=== PATIENT | male | born 1945 | race Caucasian/White ===

== ENCOUNTER → 2016-08-04 | Outpatient (CLI) | payer MEDICARE, OTHER ==
--- NOTE | 2016-08-04 11:37 | EST ---
DATE OF SERVICE: 08/04/2016 AGE: 71Y SEX: M HT: 69" WT: 155 lbs. Protocol Javy: X Other: Stress Stage: 4 Dur. of Exercise: 10:00 *Heart Rate Blood Pressure *Rest: 78 Rest: 140/96 * *Max. Achieved: 150 Maximum BP: 209/89 85% PMHR: 128 100% PMHR: 150 *METS: 11.7 INDICATIONS: Chest pain. MEDICATIONS: - Baseline EKG revealed normal sinus rhythm without significant ST-T changes. Patient walked on standard Javy protocol for total duration of 10 minutes, achieved a maximum heart rate of 150 beats, which is 100% of predicted maximum. He developed fatigue, shortness of breath, but did not have angina or arrhythmia. Peak blood pressure was 209/89 and resting blood pressure was 140/96. By EKG criteria, this is a negative stress test with excellent exercise capacity. Patient was slightly hypertensive to begin with. There is no evidence of any stress-induced ischemia on the basis of this stress test.
== END | disposition home or self-care (01) ==
LOC: RADNMMAIN 10:32
PROVIDERS: ATTEND Internal Medicine Geriatric Medicine
DX: R07.9 Chest pain, unspecified (principal)
CPT/HCPCS: 93017

== ENCOUNTER 2016-10-13 08:25 | Day surgery (SDC) | payer MEDICARE, OTHER ==
[2016-10-11 09:31] VITALS: BMI 22.8
[~2016-10-13 08:25] MED LIST: CLINDAMYCIN 900 MG in DEXTROSE 5% IN WATER 50 ML IVPB ONE; DEXAMETHASONE SOD PHOSPHATE 10 MG/ML 1 ML VIAL IV ONE; LEVOFLOXACIN 500MG-D5W PMX 500 MG in DEXTROSE/WATER 1 100ML.BAG IVPB ONE; LIDOCAINE 1% 20 ML VIAL (10MG/ML) FOR IV START INTRADERMA PRN; ONDANSETRON 4 MG/2 ML VIAL IVP ONE
[2016-10-13] MEDS: LACTATED RINGERS 1,000 ML IV SCH ×2 (08:42→08:51)
[2016-10-13] MEDS ORDERED: HEPARIN SODIUM,PORCINE 5,000 UNIT/ML 1 ML VIAL SQ ONE ×2 (09:01→09:06)
[2016-10-13] MEDS ORDERED: ePHEDrine 50 MG/ML 1 ML AMP ONE (09:35)
[2016-10-13] MEDS ORDERED: PHENYLEPHRINE-0.9% NACL SYG 1 MG/10 ML SYRINGE ONE (09:35)
[2016-10-13] MEDS ORDERED: NEOSTIGMINE 1 MG/ML 10 ML VIAL ONE (09:35)
[2016-10-13] MEDS ORDERED: GLYCOPYRROLATE 0.2 MG/ML 2 ML VIAL ONE (09:35)
[2016-10-13] MEDS ORDERED: MIDAZOLAM 2 MG/2 ML VIAL ONE (09:35)
[2016-10-13] MEDS ORDERED: LABETALOL 5 MG/ML VIAL MDV ONE (09:35)
[2016-10-13] MEDS ORDERED: PROPOFOL 10 MG/ML 20 ML VIAL IV ONE (09:35)
[2016-10-13] MEDS ORDERED: ONDANSETRON 4 MG/2 ML VIAL ONE (09:35)
[2016-10-13] MEDS ORDERED: fentaNYL (PF) 50 MCG/ML 2 ML AMP ONE (09:35)
[2016-10-13] MEDS ORDERED: HYDROmorphone (PF) 1 MG/ML ONE (09:35)
[2016-10-13] MEDS ORDERED: ROCURONIUM BROMIDE 10 MG/ML 10 ML VIAL IV ONE (09:35)
[2016-10-13] MEDS ORDERED: SUCCINYLCHOLINE CHLORIDE 100 MG/5 ML SYR IV ONE (09:35)
[2016-10-13] MEDS ORDERED: LACTATED RINGERS 1,000 ML IV ONE ×2 (11:12→15:03)
[2016-10-13] MEDS: HYDROmorphone 1 MG/ML 1 ML SYRINGE IVP PRN ×3 (14:05→14:25)
--- NOTE | 2016-10-13 15:08 | P.OP ---
Date of Procedure: 10/13/16 Preoperative Diagnosis: Bilateral inguinal hernia Postoperative Diagnosis: bilateral indirect inguinal hernia Procedure(s) Performed: Robot-assisted laparoscopic inguinal hernia repair Implants: Anesthesia: EVELINEA Surgeon: Ottoniel Pan Estimated Blood Loss (ml): 15 Pathology: none sent Condition: stable Disposition: PACU Indications for Procedure: Operative Findings: Description of Procedure: Informed consent was obtained patient and then The patient was brought to the operating room and placed in supine position. General anesthesia with endotracheal intubation was performed as per anesthesia team. A wong catheter was inserted under sterile aseptic precautions. Chlorhexidine was used to prep the skin followed by application of sterile drapes . He was placed in the lithotomy position. A timeout was performed to verify correct patient, correct procedure and correct side. Patient was confirmed to receive perioperative IV antibiotics, subcutaneous heparin 5000 units and bilateral SCDs were placed. The left upper quadrant point was identified and a stab incision was made. Veress needle was introduced and placement was confirmed with the help of the drop test. The abdomen was then insufflated to 15 mmHg. Once that was done 5 mm port was introduced into the left upper quadrant using the Optiview technique after which a 12 mm port was placed in the supraumbilical position and a 8 mm port in the right lower quadrant and then after that the left-sided 5 mm port was replaced with a robot 8 mm port under direct vision. The robot was then docked with the central camera port and the 2 side working ports. The 30 degree of scope was introduced and the abdomen through the 12 mm port site. Cardiere grasper for the left hand and scissor in the right hand was introduced in the abdominal cavity after which the media umbilical fold on the right side were grasped and incision was made within it and was actually incised further and carried over the midline towards left side creating an open flap on the left side. The peritoneum was also opened further on the right side all the way down to the paracolic gutter. Once this was done the peritoneum was meticulously dissected off the anterior abdominal wall especially in the midline with the previous incision for the open prostatectomy had been this was taken down first, followed by lateral dissection. What was noted that the lateral dissection on both side the peritoneum and the transversalis was incised adhesed and therefore the patient was not forming well. Therefore approach and from lateral to medial side were able to find a plane between the transversalis and the peritoneum and that was opened up on both sides thus creating peritoneal folds on both sides at the same time. Once that was done attention was turned towards the midline where further dissection was necessary. Sponges were also introduced Bipolar forceps was in the left hand and scissor in the right with diffuse dissection was done so as to take down all the scar tissue and adhesions in the midline exposing both pubic tubercles and Dru's ligaments. Going laterally first on the left side the superior surface of the hernia sac was identified and then after grabbing and retracting it superiorly while the title assistant through the title assistant port grabbed and pulled the peritoneal fold inferiorly dissection was made around it for skeletonizing it off of the vas which was now visible. Once the sac was completely reduced the vas and the duct were all clearly identified and appropriate critical view was obtained similar dissection was done on the opposite side. 10 x 15 Pro mold dresser measures were then taken and placed covering all the orifices. The peritoneum was then sutured to the anterior abdominal wall lower than from where it was incised so that there will was no pole on the mesh or folding. Multiple holes was seen all of which were closed meticulously. Once this was done all the sponges and needles were removed and accounted for. There were no holes. His no folding of the mesh. Patient ordered procedure well there were complications he was extubated and taken to recovery room after removal of the Wong catheter. Plan - Discharge Summary New Discharge Prescriptions: New HYDROcodone/APAP 5-325MG [[place] 5-325] 1 tab PO Q6HR PRN #20 tab PRN Reason: Pain Ibuprofen [Motrin] 800 mg PO Q8H PRN #20 tab PRN Reason: Pain No Action clonazePAM [KlonoPIN] 0.5 mg PO HS Famotidine (Unknown Dose) 1 tab PO DAILY PRN PRN Reason: See Comments Acetaminophen Tab [Tylenol Tab] 1,000 mg PO BID Discharge Medication List Acetaminophen Tab [Tylenol Tab] 1,000 mg PO BID 10/11/16 [History] Famotidine (Unknown Dose) 1 tab PO DAILY PRN 10/11/16 [History] clonazePAM [KlonoPIN] 0.5 mg PO HS 10/11/16 [History] HYDROcodone/APAP 5-325MG [[place] 5-325] 1 tab PO Q6HR PRN #20 tab 07/13/17 [Rx] Ibuprofen [Motrin] 800 mg PO Q8H PRN #20 tab 10/13/16 [Rx] Follow up Appointment(s)/Referral(s): Ottoniel Pan MD [STAFF PHYSICIAN] - 1 Week Activity/Diet/Wound Care/Special Instructions: Regular diet AMbulate as tolerated Use incentive spirometer as directed No driving on pain medications or when having pain May shower in 24 hours No heavy liftin more than 20 lbs for 6 weeks Discharge Disposition: HOME SELF-CARE
[2016-10-13] MEDS ORDERED: HYDROcodone/APAP 5-325MG 1 EACH TAB PO ONE (15:50)
[2016-10-13 16:03] VITALS: RESP 18
[2016-10-13 16:19] VITALS: TEMP 96.9
[2016-10-13 17:40] VITALS: PULSE 100
[2016-10-13 18:28] VITALS: BP 136/72
== END 2016-10-13 18:36 | disposition home or self-care (01) ==
LOC: OR 08:25
PROVIDERS: ATTEND Surgery
DX: K40.20 Bilateral inguinal hernia, without obstruction or gangrene, not specified as recurrent (principal); Z85.46 Personal history of malignant neoplasm of prostate; I49.3 Ventricular premature depolarization; K21.9 Gastro-esophageal reflux disease without esophagitis; R56.9 Unspecified convulsions; Z79.899 Other long term (current) drug therapy; Z88.0 Allergy status to penicillin; Z88.2 Allergy status to sulfonamides
CPT/HCPCS: 49650; C1781; J2250; J1644; J1100; J2710; J2405; J1956; J3010; J1170; J2370; J0330; J2704

== ENCOUNTER 2019-09-26 13:29 | Emergency (ER) | payer MEDICARE, OTHER ==
[2019-09-26 13:40] VITALS: RESP 18
--- NOTE | 2019-09-26 14:26 | ED ---
Fall HPI - General Chief Complaint: Fall Stated Complaint: head injury, fell off ladder Time Seen by Provider: 09/26/19 13:41 Source: patient Mode of arrival: wheelchair - History of Present Illness Initial Comments: Patient is a 74-year-old male presenting to the emergency department after falling off the second step of a small ladder. Patient states he fell forward over the small stepstool landing mostly on the right side of his head. Patient states he did land on cement. He did not lose consciousness, he is not on blood thinners. He states feels "a little disoriented" but denies blurry vision, denies trouble walking. He denies any nausea or vomiting. He states he has a very mild headache. He denies any other injuries from this fall. He has no other complaints at this time. Upon arrival to the ER, his vital signs are stable. - Related Data Home Medications Medication Instructions Recorded Confirmed Acetaminophen Tab [Tylenol Tab] 1,000 mg PO BID 10/11/16 10/13/16 Famotidine (Unknown Dose) 1 tab PO Q7D PRN 10/11/16 10/13/16 clonazePAM [KlonoPIN] 0.5 mg PO HS PRN 10/11/16 10/13/16 Metoprolol (Unknown Dose) 25 mg PO DAILY 03/09/17 Previous Rx's Medication Instructions Recorded Ibuprofen [Motrin] 800 mg PO Q8H PRN #20 tab 10/13/16 Allergies Allergy/AdvReac Type Severity Reaction Status Date / Time Penicillins Allergy Severe Anaphylaxis Verified 09/26/19 13:40 Sulfa (Sulfonamide Allergy Anaphylaxis Verified 09/26/19 13:40 Antibiotics) Review of Systems ROS Statement: Those systems with pertinent positive or pertinent negative responses have been documented in the HPI. ROS Other: All systems not noted in ROS Statement are negative. Past Medical History Past Medical History: Cancer, GERD/Reflux, Prostate Disorder, Syncope Additional Past Medical History / Comment(s): Hx prostate cancer History of Any Multi-Drug Resistant Organisms: None Reported Past Surgical History: Hernia Repair, Prostate Surgery, Tonsillectomy Past Anesthesia/Blood Transfusion Reactions: No Reported Reaction Additional Past Anesthesia/Blood Transfusion Reaction / Comment(s): Pt states after Prostate surgery it took him a year to get back to normal with his brain activity. States he had difficulty forming and putting together two sentences. Past Psychological History: Anxiety Smoking Status: Never smoker Past Alcohol Use History: Occasional Past Drug Use History: None Reported - Past Family History Father Family Medical History: Cancer Additional Family Medical History / Comment(s): Skin cancer General Exam - General Exam Comments Initial Comments: GENERAL: Well-appearing, well-nourished and in no acute distress. HEAD: Patient has a hematoma on the right side of his head just superior to the temporal area. This is tender to touch. Patient also has a very small hematoma just above his right eyebrow. EYES: Pupils equal round and reactive to light, extraocular movements intact, sclera anicteric, conjunctiva are normal. ENT: TMs normal, nares patent, oropharynx clear without exudates. Moist mucous membranes. NECK: Normal range of motion, supple without lymphadenopathy or JVD. LUNGS: Breath sounds clear to auscultation bilaterally and equal. No wheezes rales or rhonchi. HEART: Regular rate and rhythm without murmurs, rubs or gallops. ABDOMEN: Soft, nontender, normoactive bowel sounds. No guarding, no rebound. No masses appreciated. : Deferred EXTREMITIES: Normal range of motion, no pitting or edema. No clubbing or cyanosis. Strength is 5 out of 5 bilaterally upper and lower extremities. NEUROLOGICAL: Cranial nerves II through XII grossly intact. Normal speech, normal gait. PSYCH: Normal mood, normal affect. SKIN: Warm, Dry, normal turgor, no rashes or lesions noted. Limitations: no limitations Course Vital Signs 09/26/19 09/26/19 13:37 15:29 Temperature 98.2 F 97.9 F Pulse Rate 67 66 Respiratory 18 18 Rate Blood Pressure 130/85 137/83 O2 Sat by Pulse 97 98 Oximetry Medical Decision Making - Medical Decision Making Patient is a 74-year-old male presenting after a fall injury. There was no loss of consciousness, he is not on blood thinners. His exam is unremarkable except for a hematoma on the right side of his skull. No neuro deficits. CT of the brain was obtained and does show a soft tissue hematoma, no other acute findings. I discussed with patient that he most likely has a mild concussion. We discussed limiting physical activity. He is in agreement with this plan of care. He is stable for discharge. Return parameters were discussed with him and his and they both verbalized understanding. Case discussed with Dr. Pierre. Disposition Clinical Impression: Fall, Traumatic hematoma of head Disposition: HOME SELF-CARE Condition: Stable Instructions (If sedation given, give patient instructions): Concussion (ED) Additional Instructions: Please return to the Emergency Department if symptoms worsen or any other concerns. Limit physical activity for the next 2-3 days. Follow-up with PCP as needed. Is patient prescribed a controlled substance at d/c from ED?: No Referrals: John Peterson MD [Primary Care Provider] - 1-2 days
--- NOTE | 2019-09-26 14:37 | CT ---
EXAMINATION TYPE: CT brain wo con DATE OF EXAM: 09/26/2019 COMPARISON: None HISTORY: Fall injury and pain CT DLP: 1068.4 mGycm Automated exposure control for dose reduction was used. FINDINGS: There is no acute intracranial hemorrhage, mass effect, or midline shift identified. Mild generalized degenerative change. There is calcification along the interhemispheric fissure. Soft tissue hematoma adjacent to the right superior parietal bone. Calvarium intact.. Metallic densities underneath the e pidermis bilaterally may represent foreign body of indeterminate age. IMPRESSION: Soft tissue hematoma overlying the right parietal bone superiorly with no acute fracture or intracran ial hemorrhage. Metallic densities in the subcutaneous tissues anteriorly likely represent tiny areas of foreign body which are of indeterminate age. Mild degenerative change.
[2019-09-26 15:30] VITALS: BP 137/83; PULSE 66; TEMP 97.9
== END 2019-09-26 15:29 | disposition home or self-care (01) ==
LOC: EC 13:29
DX: S00.93XA Contusion of unspecified part of head, initial encounter (principal); F41.9 Anxiety disorder, unspecified; Z79.899 Other long term (current) drug therapy; Z88.0 Allergy status to penicillin; Z88.2 Allergy status to sulfonamides; Z85.46 Personal history of malignant neoplasm of prostate; W11.XXXA Fall on and from ladder, initial encounter
CPT/HCPCS: 70450; 99283

== ENCOUNTER → 2020-08-12 | Outpatient (CLI) | payer MEDICARE, OTHER ==
--- NOTE | 2020-08-12 15:04 | CT ---
EXAMINATION TYPE: CT abdomen pelvis wo con DATE OF EXAM: 08/12/2020 COMPARISON: None INDICATION: Severe abdominal/pelvic pain. DLP: 760 mGycm, Automated exposure control for dose reduction was used. CONTRAST: 0 mL of Isovue 300. Study performed without Oral Contrast TECHNIQUE: Axial images were obtained from above the diaphragm to the pubic rami in the axial plane a t 5 mm thick sections. Reconstructed images are reviewed on the computer in the coronal plane. FINDINGS: Limited CT sections are obtained the lung bases. The lung bases are clear. Minimal hiatal hernia be considered. CT ABDOMEN: Liver: Normal Spleen: Normal Pancreas: Normal Adrenal glands: The adrenal glands are normal. Gallbladder: Gallstones are present. Kidneys: 0.5 cm posterior lateral left mid kidney hyperdense areas within the cortex. Additional work up is recommended. No hydronephrosis is present. No cysts are present. No renal stones are evident . Aorta: Vascular calcification is within the aorta. Inferior vena cava: Normal. CT PELVIS: Multiple brachytherapy seeds are present causing beam hardening artifact and limitation. Loops of bowel within the abdomen and pelvis are normal. This study is without oral contrast limi ting bowel evaluation. Appendix: Normal as visualized. Urinary bladder: Decompressed limiting evaluation. Genitourinary structures: Brachytherapy seeds are within the prostate. Osseous structures: No suspicious lytic or sclerotic lesions. There is a punctate sclerotic area with in the lateral left sacral alar could be a small bone island. Metastatic lesion is not excluded but m ay be less likely. Tiny punctate sclerotic areas are within the femoral heads. IMPRESSIONS: 1. No suspicious changes to suggest metastatic prostate cancer. 2. Cholelithiasis. 3. Hyperdense left renal cortex punctate mass. Additional workup with ultrasound is recommended.
== END | disposition home or self-care (01) ==
LOC: RADCTMAIN 13:09
PROVIDERS: ATTEND Internal Medicine Geriatric Medicine
DX: K80.20 Calculus of gallbladder without cholecystitis without obstruction (principal)
CPT/HCPCS: 74176

== ENCOUNTER 2020-08-17 19:13 | Emergency (ER) | payer MEDICARE, OTHER ==
[2020-08-17 19:25] VITALS: RESP 18; TEMP 97.9
[2020-08-17 19:55] LABS: Basophils % (A) 1 %; Eosinophils # (A) 0.1 k/uL (0-0.7); Eosinophils % (A) 2 %; HCT 41.5 % (39.0-53.0); HGB 14.1 gm/dL (13.0-17.5); Lymphocytes # (A) 1.6 k/uL (1.0-4.8); Lymphocytes % (A) 29 %; MCH 31.7 pg (25.0-35.0); MCHC 33.9 g/dL (31.0-37.0); MCV 93.7 fL (80.0-100.0); Mean Platelet Volume 7.7; Monocytes # (A) 0.3 k/uL (0-1.0); Monocytes % (A) 5 %; Neutrophils # (A) 3.4 k/uL (1.3-7.7); Neutrophils % (A) 62 %; Platelet Count 265 k/uL (150-450); RBC 4.43 m/uL (4.30-5.90); RDW 12.5 % (11.5-15.5); WBC 5.5 k/uL (3.8-10.6)
--- NOTE | 2020-08-17 19:56 | ED ---
General Adult HPI - General Chief complaint: Arrhythmia/Palpitations Stated complaint: new afib Time Seen by Provider: 08/17/20 19:28 Source: patient, family, RN notes reviewed, old records reviewed Mode of arrival: ambulatory Limitations: no limitations - History of Present Illness Initial comments: 75-year-old male presenting with palpitations, lightheadedness. Recent diagnosis of atrial fibrillation, started on metoprolol and eliquis. He had taken on metoprolol just prior to arrival. While at home while standing in front yard he did have this episode and heart rate was tract 150. 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 There was no associated chest pain. No vomiting patient was diaphoretic and cool according to his . - Related Data Home Medications Medication Instructions Recorded Confirmed Acetaminophen Tab [Tylenol Tab] 1,000 mg PO BID 10/11/16 10/13/16 Famotidine (Unknown Dose) 1 tab PO Q7D PRN 10/11/16 10/13/16 clonazePAM [KlonoPIN] 0.5 mg PO HS PRN 10/11/16 10/13/16 Metoprolol (Unknown Dose) 25 mg PO DAILY 03/09/17 Previous Rx's Medication Instructions Recorded Ibuprofen [Motrin] 800 mg PO Q8H PRN #20 tab 10/13/16 Allergies Allergy/AdvReac Type Severity Reaction Status Date / Time Penicillins Allergy Severe Anaphylaxis Verified 08/17/20 19:25 Sulfa (Sulfonamide Allergy Anaphylaxis Verified 08/17/20 19:25 Antibiotics) Review of Systems ROS Statement: Those systems with pertinent positive or pertinent negative responses have been documented in the HPI. ROS Other: All systems not noted in ROS Statement are negative. Past Medical History Past Medical History: Cancer, GERD/Reflux, Prostate Disorder, Syncope Additional Past Medical History / Comment(s): Hx prostate cancer History of Any Multi-Drug Resistant Organisms: None Reported Past Surgical History: Hernia Repair, Prostate Surgery, Tonsillectomy Past Anesthesia/Blood Transfusion Reactions: No Reported Reaction Additional Past Anesthesia/Blood Transfusion Reaction / Comment(s): Pt states after Prostate surgery it took him a year to get back to normal with his brain activity. States he had difficulty forming and putting together two sentences. Past Psychological History: Anxiety Smoking Status: Never smoker Past Alcohol Use History: Occasional Past Drug Use History: None Reported - Past Family History Father Family Medical History: Cancer Additional Family Medical History / Comment(s): Skin cancer General Exam Limitations: no limitations General appearance: alert, in no apparent distress Head exam: Present: atraumatic, normocephalic Eye exam: Present: normal appearance, PERRL ENT exam: Present: normal exam Neck exam: Present: normal inspection. Absent: tenderness, meningismus Respiratory exam: Present: normal lung sounds bilaterally. Absent: respiratory distress, wheezes Cardiovascular Exam: Present: regular rate, normal rhythm GI/Abdominal exam: Present: soft. Absent: distended, tenderness, guarding Extremities exam: Present: normal inspection, normal capillary refill. Absent: pedal edema, calf tenderness Neurological exam: Present: alert, oriented X3, CN II-XII intact. Absent: motor sensory deficit Psychiatric exam: Present: normal affect, normal mood Skin exam: Present: warm, dry, intact. Absent: cyanosis, diaphoretic Course Vital Signs 08/17/20 19:23 Temperature 97.9 F Pulse Rate 92 Respiratory 18 Rate Blood Pressure 144/95 O2 Sat by Pulse 99 Oximetry EKG Findings - EKG Comments: EKG Findings:: EKG: Obtained at 1929, showing atrial fibrillation left axis, LVH, rate of 97, QRS duration 92, QTC [address] segment elevation. Repeat EKG obtained at 1937, sinus rhythm with left anterior fascicular block LVH, no ST segment elevation, rate of 67, TN interval 166, QRS duration 92, QTC 416 Medical Decision Making - Medical Decision Making 75-year-old male with atrial fibrillation, had a rapid heart rate at home, presents in A. fib with a rate in the 90s. He does flip into sinus rhythm after a brief episode of bradycardia. He remains in sinus rhythm asymptomatic. Blood pressure stable. Normal CBC, normal CMP, negative troponin. 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 He has a monitor on currently. - Lab Data Result diagrams: 08/17/20 19:40 08/17/20 19:40 Lab Results 08/17/20 08/17/20 08/17/20 Range/Units 19:40 19:40 19:40 WBC 5.5 (3.8-10.6) k/uL RBC 4.43 (4.30-5.90) m/uL Hgb 14.1 (13.0-17.5) gm/dL Hct 41.5 (39.0-53.0) % MCV 93.7 (80.0-100.0) fL MCH 31.7 (25.0-35.0) pg MCHC 33.9 (31.0-37.0) g/dL RDW 12.5 (11.5-15.5) % Plt Count 265 (150-450) k/uL MPV 7.7 Neutrophils % 62 % Lymphocytes % 29 % Monocytes % 5 % Eosinophils % 2 % Basophils % 1 % Neutrophils # 3.4 (1.3-7.7) k/uL Lymphocytes # 1.6 (1.0-4.8) k/uL Monocytes # 0.3 (0-1.0) k/uL Eosinophils # 0.1 (0-0.7) k/uL Basophils # 0.0 (0-0.2) k/uL PT 11.3 (9.0-12.0) sec INR 1.1 (<1.2) APTT 29.7 (22.0-30.0) sec Sodium 143 (137-145) mmol/L Potassium 3.6 (3.5-5.1) mmol/L Chloride 108 H (98-107) mmol/L Carbon Dioxide 27 (22-30) mmol/L Anion Gap 8 mmol/L BUN 15 (9-20) mg/dL Creatinine 0.83 (0.66-1.25) mg/dL Est GFR (CKD-EPI)AfAm >90 (>60 ml/min/1.73 sqM) Est GFR (CKD-EPI)NonAf 87 (>60 ml/min/1.73 sqM) Glucose 89 (74-99) mg/dL Calcium 9.7 (8.4-10.2) mg/dL Magnesium 2.3 (1.6-2.3) mg/dL Total Bilirubin 0.8 (0.2-1.3) mg/dL AST 23 (17-59) U/L ALT 16 (4-49) U/L Alkaline Phosphatase 73 (38-126) U/L Troponin I (0.000-0.034) ng/mL Total Protein 6.9 (6.3-8.2) g/dL Albumin 4.4 (3.5-5.0) g/dL 08/17/20 Range/Units 19:40 WBC (3.8-10.6) k/uL RBC (4.30-5.90) m/uL Hgb (13.0-17.5) gm/dL Hct (39.0-53.0) % MCV (80.0-100.0) fL MCH (25.0-35.0) pg MCHC (31.0-37.0) g/dL RDW (11.5-15.5) % Plt Count (150-450) k/uL MPV Neutrophils % % Lymphocytes % % Monocytes % % Eosinophils % % Basophils % % Neutrophils # (1.3-7.7) k/uL Lymphocytes # (1.0-4.8) k/uL Monocytes # (0-1.0) k/uL Eosinophils # (0-0.7) k/uL Basophils # (0-0.2) k/uL PT (9.0-12.0) sec INR (<1.2) APTT (22.0-30.0) sec Sodium (137-145) mmol/L Potassium (3.5-5.1) mmol/L Chloride (98-107) mmol/L Carbon Dioxide (22-30) mmol/L Anion Gap mmol/L BUN (9-20) mg/dL Creatinine (0.66-1.25) mg/dL Est GFR (CKD-EPI)AfAm (>60 ml/min/1.73 sqM) Est GFR (CKD-EPI)NonAf (>60 ml/min/1.73 sqM) Glucose (74-99) mg/dL Calcium (8.4-10.2) mg/dL Magnesium (1.6-2.3) mg/dL Total Bilirubin (0.2-1.3) mg/dL AST (17-59) U/L ALT (4-49) U/L Alkaline Phosphatase (38-126) U/L Troponin I <0.012 (0.000-0.034) ng/mL Total Protein (6.3-8.2) g/dL Albumin (3.5-5.0) g/dL Disposition Clinical Impression: Atrial fibrillation Disposition: HOME SELF-CARE Condition: Good Instructions (If sedation given, give patient instructions): Heart Palpitations (ED), A-fib (Atrial Fibrillation) (ED) Is patient prescribed a controlled substance at d/c from ED?: No Referrals: John Peterson MD [Primary Care Provider] - 1-2 days Tulio Marcus MD [STAFF PHYSICIAN] - 1-2 days Time of Disposition: 20:35
[2020-08-17 20:03] LABS: Potassium 3.6 mmol/L (3.5-5.1)
[2020-08-17 20:04] LABS: ALT 16 U/L (4-49); AST 23 U/L (17-59); African American GFR (CKD) >90 (>60 ml/min/1.73 sqM); Albumin 4.4 g/dL (3.5-5.0); Alkaline Phosphatase 73 U/L (38-126); Anion Gap 8 mmol/L; Blood Urea Nitrogen 15 mg/dL (9-20); Calcium 9.7 mg/dL (8.4-10.2); Carbon Dioxide 27 mmol/L (22-30); Chloride 108 mmol/L (98-107); Glucose 89 mg/dL (74-99); Magnesium 2.3 mg/dL (1.6-2.3); Non-African American GFR(CKD) 87 (>60 ml/min/1.73 sqM); Sodium 143 mmol/L (137-145); Total Bilirubin 0.8 mg/dL (0.2-1.3); Total Protein 6.9 g/dL (6.3-8.2)
[2020-08-17 20:18] LABS: INR 1.1 (<1.2); Partial Thromboplastin Time 29.7 sec (22.0-30.0); Prothrombin Time 11.3 sec (9.0-12.0)
[2020-08-17 20:53] VITALS: BP 150/94; PULSE 56
== END 2020-08-17 20:53 | disposition home or self-care (01) ==
LOC: EC 19:13
DX: I48.91 Unspecified atrial fibrillation (principal); K21.9 Gastro-esophageal reflux disease without esophagitis; F41.9 Anxiety disorder, unspecified; Z79.1 Long term (current) use of non-steroidal anti-inflammatories (NSAID); Z85.46 Personal history of malignant neoplasm of prostate; Z88.0 Allergy status to penicillin; Z88.2 Allergy status to sulfonamides
CPT/HCPCS: 36415; 80053; 83735; 84484; 85025; 85610; 85730; 93005; 99285

== ENCOUNTER → 2020-09-01 | Outpatient (CLI) | payer MEDICARE, OTHER ==
--- NOTE | 2020-09-01 16:55 | US ---
EXAMINATION TYPE: US kidneys/renal and bladder DATE OF EXAM: 09/01/2020 COMPARISON: CT 08/12/2020 CLINICAL HISTORY: N20.0 Renal calculus. EXAM MEASUREMENTS: Right Kidney: 11.0 x 3.9 x 4.5 cm Left Kidney: 10.5 x 4.8 x 4.3 cm Right Kidney: No hydronephrosis or shadowing renal calculi seen Left Kidney: 2 probable cortical calculi adjacent to each other at the midpole, largest measuring 0. 6 x 0.4 x 0.7cm Bladder: not fully distended, wnl as seen . Ureteral jets are not visualized. No hydronephrosis. IMPRESSION: 1. 2 adjacent renal cortical calculi at the midpole measuring up to 7 mm in left kidney. No hydroneph rosis. 2. No right renal calculi. No hydronephrosis. 3. The urinary bladder is not well distended. Ureteral jets are not visualized.
== END | disposition home or self-care (01) ==
LOC: RADUSWWP 14:13
PROVIDERS: ATTEND Internal Medicine Geriatric Medicine
DX: N20.0 Calculus of kidney (principal)
CPT/HCPCS: 76770

== ENCOUNTER → 2022-07-15 | Outpatient (CLI) | payer MEDICARE, OTHER ==
--- NOTE | 2022-07-15 07:50 | CT ---
EXAMINATION TYPE: CT brain wo con CT DLP: 1085.5 mGycm, Automated exposure control for dose reduction was used. DATE OF EXAM: 07/15/2022 7:29 AM COMPARISON: 09/26/2019. CLINICAL INDICATION:Male, 77 years old with history of R51.9, Headache and tinnitus TECHNIQUE: Brain: Axial CT images of the brain were obtained with coronal and sagittal reformats created and rev iewed. Contrast used: None. Oral contrast used: None. FINDINGS: Brain: Extra-axial spaces: No abnormal extra-axial fluid collections. Ventricular system: Within normal limits Cerebral parenchyma: No acute intraparenchymal hemorrhage or mass effect. The cox-white junction is well differentiated. Cerebellum: Unremarkable. Mass effect: No evidence of midline shift. Intracranial vasculature: unremarkable Soft tissues: Normal. Calvarium/osseous structures: No depressed skull fracture. Paranasal sinuses and mastoid air cells: Mild scattered paranasal sinus disease. Visualized orbits: Orbital contents are intact. IMPRESSION: 1. No acute intracranial process. 2. No finding to correlate with patient's patient's headache or tendinitis
== END | disposition home or self-care (01) ==
LOC: RADCTMAIN 07:07
PROVIDERS: ATTEND Internal Medicine Geriatric Medicine
DX: R51.9 Headache, unspecified (principal)
CPT/HCPCS: 70450

== ENCOUNTER 2023-02-09 20:23 | Inpatient (IN) | payer MEDICARE, OTHER ==
[2023-02-09] MEDS ORDERED: SODIUM CHLORIDE 0.9% 1,000 ML IV STA (21:27)
[2023-02-09] MEDS ORDERED: SODIUM CHLORIDE 0.9% 500 ML 500 ML IV STA (21:27)
[2023-02-09] MEDS ORDERED: HYDROmorphone 1 MG/ML 1 ML SYRINGE IVP STA (21:42)
[2023-02-09] MEDS ORDERED: ONDANSETRON 4 MG/2 ML VIAL IVP STA (21:42)
[2023-02-09] MEDS ORDERED: KETOROLAC 15 MG/ML 1 ML VIAL IVP STA (21:42)
[2023-02-09 22:08] LABS: Basophils % (A) 0 %; Eosinophils # (A) 0.1 k/uL (0-0.7); Eosinophils % (A) 1 %; HCT 44.2 % (39.0-53.0); HGB 15.5 gm/dL (13.0-17.5); Lymphocytes # (A) 2.4 k/uL (1.0-4.8); Lymphocytes % (A) 22 %; MCH 33.5 pg (25.0-35.0); MCHC 35.1 g/dL (31.0-37.0); MCV 95.4 fL (80.0-100.0); Mean Platelet Volume 8.3; Monocytes # (A) 0.5 k/uL (0-1.0); Monocytes % (A) 4 %; Neutrophils # (A) 7.7 k/uL (1.3-7.7); Neutrophils % (A) 71 %; Platelet Count 260 k/uL (150-450); RBC 4.64 m/uL (4.30-5.90); RDW 12.6 % (11.5-15.5); WBC 10.9 k/uL (3.8-10.6)
--- NOTE | 2023-02-09 22:09 | CT ---
EXAMINATION TYPE: CT abdomen pelvis wo con DATE OF EXAM: 02/09/2023 HISTORY: abdominal/flank pain CT DLP: 423.7 mGycm. Automated Exposure Control for Dose Reduction was Utilized. TECHNIQUE: CT scan of the abdomen and pelvis is performed without oral or IV contrast. COMPARISON: 08/12/2020 FINDINGS: LUNG BASES: No acute process. Aortic valve calcifications noted. LIVER/GB: No significant abnormality is appreciated. PANCREAS: No significant abnormality is seen. SPLEEN: No significant abnormality is seen. ADRENALS: No significant abnormality is seen. KIDNEYS: No significant abnormality is seen. BOWEL: The stomach is fluid distended. There are dilated small bowel loops in the abdomen and pelvis with and unremarkable transition point, suggesting adhesions as the etiology for the small bowel obstruction. There is no pneumatosis or pne umoperitoneum. The mesentery is unremarkable. Multiple GENITAL ORGANS: No gross abnormality seen. LYMPH NODES: No greater than 1cm abdominal or pelvic lymph nodes are appreciated. OSSEOUS STRUCTURES: No significant abnormality is seen. Limitation of the study: Without IV contrast there is limited CT sensitivity for focal visceral lesions, intraluminal filling defects, and vascular pathology. IMPRESSION: Ileal small bowel obstruction, moderate in degree.
[2023-02-09 22:31] LABS: Prothrombin Time 11.3 sec (10.0-12.5)
[2023-02-09 22:34] LABS: ALT 19 U/L (4-49); AST 23 U/L (17-59); African American GFR (CKD) >90 (>60 ml/min/1.73 sqM); Albumin 4.6 g/dL (3.5-5.0); Alkaline Phosphatase 92 U/L (38-126); Amylase 74 U/L (30-110); Anion Gap 12 mmol/L; Blood Urea Nitrogen 17 mg/dL (9-20); Carbon Dioxide 26 mmol/L (22-30); Chloride 102 mmol/L (98-107); Glucose 98 mg/dL (74-99); Lipase 81 U/L (23-300); Non-African American GFR(CKD) 86 (>60 ml/min/1.73 sqM); Potassium 3.5 mmol/L (3.5-5.1); Sodium 140 mmol/L (137-145); Total Bilirubin 0.6 mg/dL (0.2-1.3); Total Protein 7.5 g/dL (6.3-8.2)
--- NOTE | 2023-02-09 23:20 | ED ---
Abdominal Pain HPI - General Chief Complaint: Abdominal Pain Stated Complaint: Abd pain Time Seen by Provider: 02/09/23 21:22 Source: patient, RN notes reviewed, old records reviewed Mode of arrival: ambulatory Limitations: no limitations - History of Present Illness Initial Comments: This is a 77-year-old male date for evaluation. Patient comes in for evaluation of severe and sudden onset of abdominal pain and nausea no active vomiting. Patient recently as well as bowels believes that he is having recurrent kidney stones. 2 years ago. Patient also had recent atrial fibrillation but that does appear to be control currently. Patient's again symptoms were sudden onset than her significant and severe here in the emergency department with abdominal pain right-sided abdominal pain MD Complaint: abdominal pain, flank pain (Right-sided) -: hour(s) Location: RLQ, R flank Radiation: RLQ, R flank Migration to: RUQ, RLQ, R flank Severity: severe Severity scale (1-10): 9 Quality: stabbing, fullness, sharp Consistency: constant Improves With: nothing Worsens With: nothing Associated Symptoms: nausea - Related Data Home Medications Medication Instructions Recorded Confirmed Apixaban [Eliquis] 5 mg PO BID 08/17/20 02/09/23 Metoprolol Succinate (ER) [Toprol 12.5 mg PO BID 08/17/20 02/09/23 XL] Baclofen [Lioresal] 10 mg PO BID PRN 02/09/23 02/09/23 Flecainide [Tambocor] 50 mg PO Q12HR 02/09/23 02/09/23 lisinopriL 15 mg PO DAILY 02/09/23 02/09/23 Allergies Allergy/AdvReac Type Severity Reaction Status Date / Time Penicillins Allergy Severe Anaphylaxis Verified 02/09/23 22:28 Sulfa (Sulfonamide Allergy Anaphylaxis Verified 02/09/23 22:28 Antibiotics) Review of Systems ROS Statement: Those systems with pertinent positive or pertinent negative responses have been documented in the HPI. ROS Other: All systems not noted in ROS Statement are negative. Past Medical History Past Medical History: Cancer, GERD/Reflux, Prostate Disorder, Syncope Additional Past Medical History / Comment(s): Hx prostate cancer History of Any Multi-Drug Resistant Organisms: None Reported Past Surgical History: Hernia Repair, Prostate Surgery, Tonsillectomy Past Anesthesia/Blood Transfusion Reactions: No Reported Reaction Additional Past Anesthesia/Blood Transfusion Reaction / Comment(s): Pt states after Prostate surgery it took him a year to get back to normal with his brain activity. States he had difficulty forming and putting together two sentences. Past Psychological History: Anxiety Smoking Status: Never smoker Past Alcohol Use History: Occasional Past Drug Use History: None Reported - Past Family History Father Family Medical History: Cancer Additional Family Medical History / Comment(s): Skin cancer General Exam Limitations: no limitations General appearance: alert, in no apparent distress, anxious Head exam: Present: atraumatic, normocephalic, normal inspection Eye exam: Present: normal appearance, PERRL, EOMI. Absent: scleral icterus, conjunctival injection, periorbital swelling ENT exam: Present: normal exam, mucous membranes moist Neck exam: Present: normal inspection. Absent: tenderness, meningismus, lymphadenopathy Respiratory exam: Present: normal lung sounds bilaterally. Absent: respiratory distress, wheezes, rales, rhonchi, stridor Cardiovascular Exam: Present: regular rate, normal rhythm, normal heart sounds. Absent: systolic murmur, diastolic murmur, rubs, gallop, clicks GI/Abdominal exam: Present: soft, normal bowel sounds. Absent: distended, tenderness, guarding, rebound, rigid Extremities exam: Present: normal inspection, full ROM, normal capillary refill. Absent: tenderness, pedal edema, joint swelling, calf tenderness Back exam: Present: normal inspection Neurological exam: Present: alert, oriented X3, CN II-XII intact Psychiatric exam: Present: normal affect, normal mood Skin exam: Present: warm, dry, intact, normal color. Absent: rash Course Vital Signs 02/09/23 02/10/23 20:24 00:15 Temperature 97.4 F L Pulse Rate 54 L 91 Respiratory 18 18 Rate Blood Pressure 192/90 156/88 O2 Sat by Pulse 98 99 Oximetry - Reevaluation(s) Reevaluation #1: 02/10/23 01:13 Medical records reviewed Reevaluation #2: 02/10/23 01:13 Patient symptoms are improving and he is resting comfortably currently Reevaluation #3: 02/10/23 01:13 Patient informed results and questions answered Reevaluation #4: 02/10/23 01:13 Was pt. sent in by a medical professional or institution (, PA, VICE PRESIDENT OF SOFTWARE ENGINEERING, urgent care, hospital, or [place] [facility] facility...) When possible be specific @ -no Did you speak to anyone other than the patient for history (EMS, parent, family, police, friend...)? What history was obtained from this source @ -no Did you review nursing and triage notes (agree or disagree)? Why? @ -agree Are old charts reviewed (outside hosp., previous admission, EMS record, old EKG, old radiological studies, urgent care reports/EKG's, [place] health [facility] facility records)? Report findings @ -yes Differential Diagnosis (chest pain, altered mental status, abdominal pain women, abdominal pain men, vaginal bleeding, weakness, fever, dyspnea, syncope, headache, dizziness, GI bleed, back pain, seizure, CVA, palpatations, mental health, musculoskeletal)? @ -prior EKG interpreted by me (3pts min.). @ -no X-rays interpreted by me (1pt min.). @ -no CT interpreted by me (1pt min.). @ -yes U/S interpreted by me (1pt. min.). @ -no What testing was considered but not performed or refused? (CT, X-rays, U/S, labs)? Why? @ -none What meds were considered but not given or refused? Why? @ -none Did you discuss the management of the patient with other professionals (professionals i.e. [place] Marcus, VICE PRESIDENT OF SOFTWARE ENGINEERING, lab, RT, psych nurse, neonatal social worker, jackaroo, teacher, corrections officer, rn case management)? Give summary @ -no Was smoking cessation discussed for >3mins.? @ -no Was critical care preformed (if so, how long)? @ -no Were there social determinants of health that impacted care today? How? (Homelessness, low income, unemployed, alcoholism, drug addiction, transportation, low edu. Level, literacy, decrease access to med. care, residential, rehab)? @ -none Was there de-escalation of care discussed even if they declined (Discuss DNR or withdrawal of care, Hospice)? DNR status @ -no What co-morbidities impacted this encounter? (DM, HTN, Smoking, COPD, CAD, Cancer, CVA, ARF, Chemo, Hep., AIDS, mental health diagnosis, sleep apnea, morbid obesity)? @ -none Was patient admitted / discharged? Hospital course, mention meds given and route, prescriptions, significant lab abnormalities, going to OR and other pertinent info. @ - 77 male to the emergency department for evaluation of severe sudden onset of abdominal pain with nausea, significant small bowel obstruction patient be admitted for surgical evaluation management, nothing by mouth status supportive care, patient did have a colonoscopy with Dr. Allen about 5 years ago which she believes was normal Admitted Undiagnosed new problem with uncertain prognosis? @ -no Drug Therapy requiring intensive monitoring for toxicity (Heparin, Nitro, Insulin, Cardizem)? @ -no Were any procedures done? @ -no Diagnosis/symptom? @ -Small bowel obstruction Acute, or Chronic, or Acute on Chronic? @ -Acute Uncomplicated (without systemic symptoms) or Complicated (systemic symptoms)? @ -Complicated Side effects of treatment? @ -no Exacerbation, Progression, or Severe Exacerbation? @ -exacerbation Poses a threat to life or bodily function? How? (Chest pain, USA, IA, pneumonia, PE, COPD, DKA, ARF, appy, cholecystitis, CVA, Diverticulitis, Homicidal, Suicidal, threat to staff... and all critical care pts) @ -yes with significant small bowel obstruction Reevaluation #5: 02/10/23 01:13 Differential Abdominal Pain Men: Appendicitis, cholecystitis, diverticulosis, ischemic bowel, pancreatitis, hepatitis, UTI, gastroenteritis, AAA, incarcerated hernia, bowel obstruction, constipation, inflammatory bowel, hepatitis, peptic ulcer disease, splenic infarction, perforated viscus, testicular torsion, this is not meant to be an all-inclusive list - Consultations Consultation #1: Spoke with [facility] will admit this patient Medical Decision Making - Medical Decision Making 77 male to the emergency department for evaluation of severe sudden onset of abdominal pain with nausea, significant small bowel obstruction patient be admitted for surgical evaluation management, nothing by mouth status supportive care, patient did have a colonoscopy with Dr. Allen about 5 years ago which she believes was normal - Lab Data Result diagrams: 02/11/23 04:29 02/10/23 05:36 Lab Results 02/09/23 02/09/23 02/09/23 Range/Units 21:55 21:55 21:55 WBC 10.9 H (3.8-10.6) k/uL RBC 4.64 (4.30-5.90) m/uL Hgb 15.5 (13.0-17.5) gm/dL Hct 44.2 (39.0-53.0) % MCV 95.4 (80.0-100.0) fL MCH 33.5 (25.0-35.0) pg MCHC 35.1 (31.0-37.0) g/dL RDW 12.6 (11.5-15.5) % Plt Count 260 (150-450) k/uL MPV 8.3 Neutrophils % 71 % Lymphocytes % 22 % Monocytes % 4 % Eosinophils % 1 % Basophils % 0 % Neutrophils # 7.7 (1.3-7.7) k/uL Lymphocytes # 2.4 (1.0-4.8) k/uL Monocytes # 0.5 (0-1.0) k/uL Eosinophils # 0.1 (0-0.7) k/uL Basophils # 0.0 (0-0.2) k/uL PT 11.3 (10.0-12.5) sec INR 1.0 (<1.2) APTT 30.0 (22.0-30.0) sec Sodium 140 (137-145) mmol/L Potassium 3.5 (3.5-5.1) mmol/L Chloride 102 (98-107) mmol/L Carbon Dioxide 26 (22-30) mmol/L Anion Gap 12 mmol/L BUN 17 (9-20) mg/dL Creatinine 0.81 (0.66-1.25) mg/dL Est GFR (CKD-EPI)AfAm >90 (>60 ml/min/1.73 sqM) Est GFR (CKD-EPI)NonAf 86 (>60 ml/min/1.73 sqM) Glucose 98 (74-99) mg/dL Calcium 10.0 (8.4-10.2) mg/dL Total Bilirubin 0.6 (0.2-1.3) mg/dL AST 23 (17-59) U/L ALT 19 (4-49) U/L Alkaline Phosphatase 92 (38-126) U/L Total Protein 7.5 (6.3-8.2) g/dL Albumin 4.6 (3.5-5.0) g/dL Amylase 74 (30-110) U/L Lipase 81 (23-300) U/L - Radiology Data Radiology results: report reviewed (CT abdomen and pelvis positive for small bowel obstruction), image reviewed Disposition Clinical Impression: Abdominal pain, SBO (small bowel obstruction) Disposition: ADMITTED IP TO THIS HOSP Condition: Serious Is patient prescribed a controlled substance at d/c from ED?: No Time of Disposition: 23:30
[2023-02-09] MEDS ORDERED: ONDANSETRON 4 MG/2 ML VIAL IVP PRN (23:30)
[2023-02-09] MEDS ORDERED: HYDROmorphone 1 MG/ML 1 ML SYRINGE IVP PRN (23:30)
[2023-02-09] MEDS ORDERED: NALOXONE 0.4 MG/ML 1 ML VIAL IV PRN (23:30)
[2023-02-10] MEDS: SODIUM CHLORIDE 0.9% 1,000 ML IV SCH ×3 (00:17→20:45)
[2023-02-10 06:15] LABS: Basophils % (A) 1 %; Eosinophils # (A) 0.1 k/uL (0-0.7); Eosinophils % (A) 2 %; HCT 39.5 % (39.0-53.0); HGB 13.1 gm/dL (13.0-17.5); Lymphocytes # (A) 1.9 k/uL (1.0-4.8); Lymphocytes % (A) 34 %; MCH 32.5 pg (25.0-35.0); MCHC 33.1 g/dL (31.0-37.0); Mean Platelet Volume 8.2; Monocytes # (A) 0.3 k/uL (0-1.0); Monocytes % (A) 6 %; Neutrophils % (A) 56 %; Platelet Count 239 k/uL (150-450); RBC 4.03 m/uL (4.30-5.90); RDW 12.8 % (11.5-15.5); WBC 5.5 k/uL (3.8-10.6)
[2023-02-10 07:42] LABS: ALT 15 U/L (4-49); AST 19 U/L (17-59); African American GFR (CKD) >90 (>60 ml/min/1.73 sqM); Albumin 3.3 g/dL (3.5-5.0); Alkaline Phosphatase 68 U/L (38-126); Anion Gap 5 mmol/L; Blood Urea Nitrogen 15 mg/dL (9-20); Calcium 8.4 mg/dL (8.4-10.2); Carbon Dioxide 28 mmol/L (22-30); Chloride 107 mmol/L (98-107); Glucose 85 mg/dL (74-99); Magnesium 2.1 mg/dL (1.6-2.3); Non-African American GFR(CKD) 85 (>60 ml/min/1.73 sqM); Sodium 140 mmol/L (137-145); Total Bilirubin 0.6 mg/dL (0.2-1.3); Total Protein 5.7 g/dL (6.3-8.2)
--- NOTE | 2023-02-10 11:51 | P.GSCN ---
History of Present Illness Consult date: 02/10/23 History of present illness: CHIEF COMPLAINT: Abdominal pain HISTORY OF PRESENT ILLNESS: This is a 77-year-old male who presented to hospital with complaints of mid abdominal pain that started yesterday evening around 6 PM. He denies any nausea or vomiting. He reports no change in his bowel function. He reports having bowel movements yesterday and flatus. He had a computed tomography scan abdomen yesterday that showed ileal small bowel obstruction, moderate in degree. He reports that his abdominal pain has now resolved. He continues to have flatus. Patient denies any prior history of bowel obstruction. He does have a history of bilateral inguinal hernia repair and prostate surgery for prostate Cancer. Last dose of Eliquis was yesterday morning. He takes it for Afib. PAST MEDICAL HISTORY: See below PAST SURGICAL HISTORY: See below MEDICATIONS: See below ALLERGIES: See below SOCIAL HISTORY: No illicit drug use. REVIEW OF SYSTEMS: CONSTITUTIONAL: Denies fever or chills. HEENT: Denies blurred vision, vision changes, or eye pain. Denies hemoptysis CARDIOVASCULAR: Denies chest pain or pressure. RESPIRATORY: No shortness of breath. GASTROINTESTINAL: See HPI for pertinent findings HEMATOLOGIC: Denies bleeding disorders. GENITOURINARY: Denies any blood in urine or increased urinary frequency. SKIN: Denies pruitis. Denies rash. PHYSICAL EXAM: VITAL SIGNS: Reviewed GENERAL: Well-developed in no acute distress. ABDOMEN: Soft. Nondistended. Nontender NEUROLOGIC: Alert and oriented. Cranial nerves II through XII grossly intact. LABORATORY DATA: WBC 10.9 to 5.5 Hgb 13.1 plt 239 Na 140 K 4.0 cr 0.84 IMAGING: Computed tomography scan abdomen reports ileal small bowel obstruction ASSESSMENT: 1. Ileal small bowel obstruction noted on CT scan 2. Abdominal pain resolved PLAN: -Check follow-up abdominal x-ray on small bowel obstruction -Keep patient nothing by mouth for now -Continue IV fluids -Continue supportive care -Further recommendations forthcoming per surgeon Physician Methods Study Analyst note has been reviewed by physician. Signing provider agrees with the documented findings, assessment, and plan of care. I have personally seen and examined the patient, reviewed the INOCULATOR /PAs history, exam and MDM and agree with the assessment and plan as written. Based on total visit time, I have performed more than 50% of the visit. As above: Patient presented with abdominal pain. Central abdomen. Had 1 episode of vomiting. Pain is now gone. No bowel movement yet. Small amount of flatus. He is hungry. He was hoping to go home today. Patient with history of previous robotic prostatectomy and robotic bilateral inguinal hernia repair in the past. CAT scan reviewed. Proximal small bowel dilation noted. No discrete transition point identified. Patient states he was eating a large volume of roughage including nuts in the last few days. Repeat abdominal x-rays today improved. Will begin clear liquid diet. If tolerates slowly advance diet and plan possible discharge tomorrow. Past Medical History Past Medical History: Cancer, GERD/Reflux, Prostate Disorder, Syncope Additional Past Medical History / Comment(s): Hx prostate cancer History of Any Multi-Drug Resistant Organisms: None Reported Past Surgical History: Hernia Repair, Prostate Surgery, Tonsillectomy Additional Past Surgical History / Comment(s): Bilat hernia repair Past Anesthesia/Blood Transfusion Reactions: No Reported Reaction Additional Past Anesthesia/Blood Transfusion Reaction / Comm: Pt states after Prostate surgery it took him a year to get back to normal with his brain activity. States he had difficulty forming and putting together two sentences. Past Psychological History: Anxiety Smoking Status: Never smoker Past Alcohol Use History: Occasional Past Drug Use History: None Reported - Past Family History Father Family Medical History: Cancer Additional Family Medical History / Comment(s): Skin cancer Medications and Allergies Home Medications Medication Instructions Recorded Confirmed Type Apixaban [Eliquis] 5 mg PO BID 08/17/20 02/09/23 History Metoprolol Succinate (ER) [Toprol 12.5 mg PO BID 08/17/20 02/09/23 History XL] Baclofen [Lioresal] 10 mg PO BID PRN 02/09/23 02/09/23 History Flecainide [Tambocor] 50 mg PO Q12HR 02/09/23 02/09/23 History lisinopriL 15 mg PO DAILY 02/09/23 02/09/23 History Allergies Allergy/AdvReac Type Severity Reaction Status Date / Time Penicillins Allergy Severe Anaphylaxis Verified 02/09/23 22:28 Sulfa (Sulfonamide Allergy Anaphylaxis Verified 02/09/23 22:28 Antibiotics) Surgical - Exam Vital Signs Temp Pulse Resp BP Pulse Ox 97.4 F L 54 L 18 192/90 98 02/09/23 20:24 02/09/23 20:24 02/09/23 20:24 02/09/23 20:24 02/09/23 20:24 Results - Labs 02/10/23 05:36 02/10/23 05:36 Abnormal Lab Results - Last 24 Hours (Table) 02/09/23 02/10/23 02/10/23 Range/Units 21:55 05:36 05:36 WBC 10.9 H (3.8-10.6) k/uL RBC 4.03 L (4.30-5.90) m/uL Total Protein 5.7 L (6.3-8.2) g/dL Albumin 3.3 L (3.5-5.0) g/dL Diabetes panel 02/09/23 02/10/23 Range/Units 21:55 05:36 Sodium 140 140 (137-145) mmol/L Potassium 3.5 4.0 (3.5-5.1) mmol/L Chloride 102 107 (98-107) mmol/L Carbon Dioxide 26 28 (22-30) mmol/L BUN 17 15 (9-20) mg/dL Creatinine 0.81 0.84 (0.66-1.25) mg/dL Glucose 98 85 (74-99) mg/dL Calcium 10.0 8.4 (8.4-10.2) mg/dL AST 23 19 (17-59) U/L ALT 19 15 (4-49) U/L Alkaline Phosphatase 92 68 (38-126) U/L Total Protein 7.5 5.7 L (6.3-8.2) g/dL Albumin 4.6 3.3 L (3.5-5.0) g/dL Calcium panel 02/09/23 02/10/23 Range/Units 21:55 05:36 Calcium 10.0 8.4 (8.4-10.2) mg/dL Phosphorus 4.0 (2.5-4.5) mg/dL Albumin 4.6 3.3 L (3.5-5.0) g/dL Pituitary panel 02/09/23 02/10/23 Range/Units 21:55 05:36 Sodium 140 140 (137-145) mmol/L Potassium 3.5 4.0 (3.5-5.1) mmol/L Chloride 102 107 (98-107) mmol/L Carbon Dioxide 26 28 (22-30) mmol/L BUN 17 15 (9-20) mg/dL Creatinine 0.81 0.84 (0.66-1.25) mg/dL Glucose 98 85 (74-99) mg/dL Calcium 10.0 8.4 (8.4-10.2) mg/dL Adrenal panel 02/09/23 02/10/23 Range/Units 21:55 05:36 Sodium 140 140 (137-145) mmol/L Potassium 3.5 4.0 (3.5-5.1) mmol/L Chloride 102 107 (98-107) mmol/L Carbon Dioxide 26 28 (22-30) mmol/L BUN 17 15 (9-20) mg/dL Creatinine 0.81 0.84 (0.66-1.25) mg/dL Glucose 98 85 (74-99) mg/dL Calcium 10.0 8.4 (8.4-10.2) mg/dL Total Bilirubin 0.6 0.6 (0.2-1.3) mg/dL AST 23 19 (17-59) U/L ALT 19 15 (4-49) U/L Alkaline Phosphatase 92 68 (38-126) U/L Total Protein 7.5 5.7 L (6.3-8.2) g/dL Albumin 4.6 3.3 L (3.5-5.0) g/dL
--- NOTE | 2023-02-10 11:58 | XR ---
EXAMINATION TYPE: XR abdomen 2V DATE OF EXAM: 02/10/2023 COMPARISON: NONE HISTORY: Follow-up small bowel obstruction TECHNIQUE: One view abdominal series FINDINGS: The osseous structures are intact. The bowel gas pattern is nonspecific. Lung bases are clear. Post surgical changes in the pelvis. Hypertrophic changes spine. Hypertrophic arthropathy of the hips. Trino cifications in the pelvis likely vascular. IMPRESSION: 1. Nonspecific abdomen. No diagnostic evidence of obstruction.
[2023-02-10] MEDS ORDERED: HEPARIN SODIUM 1,000 UN/ML (10ML VL) IV ONE (12:39)
[2023-02-10] MEDS ORDERED: HEPARIN SODIUM 1,000 UN/ML (10ML VL) IV PRN (12:39)
[2023-02-10] MEDS ORDERED: METOPROLOL TARTRATE 5 MG/5 ML VIAL IVP SCH (12:45)
[2023-02-10] MEDS ORDERED: HEPARIN SOD,PORK IN 0.45% NACL 25,000 UNIT in 0.45% NACL 1 250ML.BAG IV SCH (12:45)
[2023-02-10 13:41] LABS: Partial Thromboplastin Time 29.2 sec (22.0-30.0); Prothrombin Time 11.3 sec (10.0-12.5)
[2023-02-10] MEDS: ACETAMINOPHEN TAB 325 MG TAB PO PRN ×2 (14:07→18:58)
[2023-02-10] MEDS ORDERED: BACLOFEN 10 MG TAB PO PRN (14:14)
--- NOTE | 2023-02-10 18:14 | P.HPIM ---
History of Present Illness H&P Date: 02/10/23 Chief Complaint: Abdominal pain 77-year-old male date for evaluation. Patient comes in for evaluation of severe and sudden onset of abdominal pain and nausea no active vomiting. Patient recently as well as bowels believes that he is having recurrent kidney stones. 2 years ago. Patient also had recent atrial fibrillation but that does appear to be control currently. Patient's again symptoms were sudden onset than her significant and severe here in the emergency department with abdominal pain right-sided abdominal pain mid abdominal pain that started yesterday evening around 6 PM. He denies any nausea or vomiting. He reports no change in his bowel function. He reports having bowel movements yesterday and flatus. He had a computed tomography scan abdomen yesterday that showed ileal small bowel obstruction, moderate in degree. Review of Systems REVIEW OF SYSTEMS: CONSTITUTIONAL: No fever, no malaise, no fatigue. HEENT: No recent visual problems or hearing problems. Denied any sore throat. CARDIOVASCULAR: No chest pain, orthopnea, PND, no palpitations, no syncope. PULMONARY: No shortness of breath, no cough, no hemoptysis. GASTROINTESTINAL: No diarrhea, no nausea, no vomiting, no abdominal pain. NEUROLOGICAL: No headaches, no weakness, no numbness. HEMATOLOGICAL: Denies any bleeding or petechiae. GENITOURINARY: Denies any burning micturition, frequency, or urgency. MUSCULOSKELETAL/RHEUMATOLOGICAL: Denies any joint pain, swelling, or any muscle pain. ENDOCRINE: Denies any polyuria or polydipsia. The rest of the 14-point review of systems is negative. Past Medical History Past Medical History: Cancer, GERD/Reflux, Prostate Disorder, Syncope Additional Past Medical History / Comment(s): Hx prostate cancer History of Any Multi-Drug Resistant Organisms: None Reported Past Surgical History: Hernia Repair, Prostate Surgery, Tonsillectomy Additional Past Surgical History / Comment(s): Bilat hernia repair Past Anesthesia/Blood Transfusion Reactions: No Reported Reaction Additional Past Anesthesia/Blood Transfusion Reaction / Comment(s): Pt states after Prostate surgery it took him a year to get back to normal with his brain activity. States he had difficulty forming and putting together two sentences. Past Psychological History: Anxiety Smoking Status: Never smoker Past Alcohol Use History: Occasional Past Drug Use History: None Reported - Past Family History Father Family Medical History: Cancer Additional Family Medical History / Comment(s): Skin cancer Medications and Allergies Home Medications Medication Instructions Recorded Confirmed Type Apixaban [Eliquis] 5 mg PO BID 08/17/20 02/09/23 History Metoprolol Succinate (ER) [Toprol 12.5 mg PO BID 08/17/20 02/09/23 History XL] Baclofen [Lioresal] 10 mg PO BID PRN 02/09/23 02/09/23 History Flecainide [Tambocor] 50 mg PO Q12HR 02/09/23 02/09/23 History lisinopriL 15 mg PO DAILY 02/09/23 02/09/23 History Allergies Allergy/AdvReac Type Severity Reaction Status Date / Time Penicillins Allergy Severe Anaphylaxis Verified 02/09/23 22:28 Sulfa (Sulfonamide Allergy Anaphylaxis Verified 02/09/23 22:28 Antibiotics) Physical Exam Vitals: Vital Signs Temp Pulse Pulse Resp BP BP Pulse Ox 02/10/23 12:21 98.3 F 51 L 18 168/79 96 02/10/23 08:00 54 L 16 02/10/23 07:23 98.4 F 54 L 16 147/79 98 02/10/23 02:00 97.6 F 58 L 16 161/86 98 02/10/23 01:12 97.6 F 48 L 16 178/85 100 02/10/23 00:37 54 L 16 02/10/23 00:15 91 18 156/88 99 02/09/23 20:24 97.4 F L 54 L 18 192/90 98 Intake and Output 02/09/23 02/10/23 02/10/23 22:59 06:59 14:59 Intake Total 0 Balance 0 Intake: Oral 0 Other: Voiding Method Toilet Toilet Urinal Urinal # Voids 1 Weight 68.039 kg 68.039 kg - Constitutional General appearance: Present: average body habitus, cooperative, no acute distress - EENT Eyes: Present: anicteric sclerae, EOMI, PERRLA, normal appearance ENT: Present: hearing grossly normal, normal oropharynx Ears: bilateral: normal - Neck Neck: Present: normal ROM. Absent: lymphadenopathy, rigidity, thyromegaly Carotids: negative: bruit present Thyroid: bilateral: normal size, negative: enlarged, nodule - Respiratory Respiratory: bilateral: CTA, negative: rales, rhonchi, wheezing - Cardiovascular Rhythm: regular Heart sounds: normal: S1, S2 Abnormal Heart Sounds: Absent: systolic murmur, diastolic murmur - Gastrointestinal General gastrointestinal: Present: normal bowel sounds, soft. Absent: distended, organomegaly, tenderness - Genitourinary Genitourinary Comment(s): deferred - Integumentary Integumentary: Present: normal turgor. Absent: jaundiced, rash, ulcer - Neurologic Neurologic: Present: CNII-XII intact. Absent: focal deficits - Musculoskeletal Musculoskeletal: Present: gait normal, strength equal bilaterally - Psychiatric Psychiatric: Present: A&O x's 3, appropriate affect, intact judgment & insight Results CBC & Chem 7: 02/10/23 05:36 02/10/23 05:36 Labs: Abnormal Lab Results - Last 24 Hours (Table) 02/09/23 02/10/23 02/10/23 Range/Units 21:55 05:36 05:36 WBC 10.9 H (3.8-10.6) k/uL RBC 4.03 L (4.30-5.90) m/uL Total Protein 5.7 L (6.3-8.2) g/dL Albumin 3.3 L (3.5-5.0) g/dL Thrombosis Risk Factor Assmnt - Choose All That Apply Any of the Below Risk Factors Present?: No Each Risk Factor Represents 3 Points: Age 75 years or older Other congenital or acquired thrombophilia - If yes, enter type in comment: No Thrombosis Risk Factor Assessment Total Risk Factor Score: 3 Thrombosis Risk Factor Assessment Level: Moderate Risk Assessment and Plan Assessment: 1. Small bowel obstruction - CT of the abdomen completed upon admission reveals ileal small bowel obstruction of moderate degree -- Gen. surgery is consulted; recommending to keep patient nothing by mouth for now and continue with supportive care with IV fluids - Repeat abdominal x-ray is recommended 2. Hypertension; metoprolol 12.5 mg twice a day, lisinopril 15 mg daily 3. Atrial fibrillation; rate controlled on metoprolol 12.5 mg twice a day and Tambocor 50 mg every 12 hours; anticoagulation with L Gonzales 5 mg twice a day 4. Gastroesophageal reflux disease; continue PPI DVT prophylaxis; SCDs/systemic anticoagulation CODE STATUS; full code
[2023-02-10] MEDS: APIXABAN 5 MG TAB PO SCH (20:19)
[2023-02-10] MEDS: METOPROLOL SUCCINATE (ER) 25 MG TAB.ER.24H PO SCH (20:19)
[2023-02-10] MEDS: FLECAINIDE 50 MG TAB PO SCH (20:20)
[2023-02-10] MEDS ORDERED: lisinopriL 5 MG TAB PO SCH (21:00)
[2023-02-11] MEDS: METOPROLOL SUCCINATE (ER) 25 MG TAB.ER.24H PO SCH (08:30)
[2023-02-11] MEDS: APIXABAN 5 MG TAB PO SCH (08:30)
[2023-02-11] MEDS: FLECAINIDE 50 MG TAB PO SCH (08:30)
[2023-02-11] MEDS ORDERED: lisinopriL 5 MG TAB PO SCH (09:00)
[2023-02-11 11:11] LABS: Basophils # (A) 0.06 X 10*3/uL (0.00-0.10); Basophils % (A) 1.3 %; Eosinophils # (A) 0.09 X 10*3/uL (0.04-0.35); Eosinophils % (A) 1.9 %; HCT 39.9 % (39.6-50.0); HGB 13.2 g/dL (13.0-17.0); Lymphocytes # (A) 1.64 X 10*3/uL (0.90-5.00); Lymphocytes % (A) 35.2 %; MCH 31.6 pg (27.0-32.0); MCHC 33.1 g/dL (32.0-37.0); MCV 95.5 FL (80.0-97.0); Mean Platelet Volume 11.6 FL (9.5-12.2); Monocytes # (A) 0.41 X 10*3/uL (0.20-1.00); Monocytes % (A) 8.8 %; NRBC Per 100 WBC 0 X 10*3/uL (0.00-0.01); Neutrophils # (A) 2.45 X 10*3/uL (1.80-7.70); Neutrophils % (A) 52.6 %; Platelet Count 246 X 10*3/uL (140-440); RBC 4.18 X 10*6/uL (4.40-5.60); RDW 12.7 % (11.5-14.5); WBC 4.66 X 10*3/uL (4.50-10.00)
--- NOTE | 2023-02-11 11:54 | P.PN ---
Subjective Progress Note Date: 02/11/23 Ileus versus small bowel obstruction symptoms improved Objective - Vital Signs Vital signs: Vital Signs Temp 97.8 F 02/11/23 07:36 Pulse 57 L 02/11/23 07:36 Resp 15 02/11/23 07:36 BP 175/77 02/11/23 07:36 Pulse Ox 98 02/11/23 07:36 FiO2 Intake & Output 02/10/23 02/11/23 02/11/23 18:59 06:59 18:59 Intake Total 160 1020 Output Total 900 1400 625 Balance -740 -380 -625 Intake: Intake, IV Titration 900 Amount Sodium Chloride 0.9% 1, 900 000 ml @ 75 mls/hr IV . [id number] POLO Rx#:[id number] Oral 160 120 Output: Urine 900 1400 625 Other: Voiding Method Toilet Toilet Urinal Urinal - Constitutional General appearance: Present: no acute distress - EENT Eyes: Present: PERRLA ENT: Present: normal oropharynx - Respiratory Respiratory: bilateral: CTA - Cardiovascular Rhythm: regular - Gastrointestinal General gastrointestinal: Present: normal bowel sounds, soft - Integumentary Integumentary: Present: normal, normal turgor - Neurologic Neurologic: Present: CNII-XII intact - Musculoskeletal Musculoskeletal: Present: strength equal bilaterally - Psychiatric Psychiatric: Present: A&O x's 3, appropriate affect - Labs CBC & Chem 7: 02/11/23 04:29 02/10/23 05:36 Labs: Abnormal Lab Results - Last 24 Hours (Table) 02/10/23 02/11/23 Range/Units 18:49 04:29 RBC 4.18 L (4.40-5.60) X 10*6/uL APTT 30.1 H (22.0-30.0) sec - Imaging and Cardiology Chest x-ray: image reviewed Abdominal x-ray: image reviewed Assessment and Plan Assessment: Ileus resolving versus incomplete small bowel obstruction. (1) Abdominal pain Current Visit: Yes Status: Acute Code(s): R10.9 - UNSPECIFIED ABDOMINAL PAIN SNOMED Code(s): 21537093 Plan: Advance diet likely discharge.
[2023-02-11 13:21] LABS: INR 1.11 sec (0.93-1.11); Prothrombin Time 11.9 sec (9.9-11.9)
[2023-02-11 13:40] VITALS: BP 137/72; PULSE 50; RESP 19; TEMP 98.4
--- NOTE | 2023-02-19 15:15 | P.DS ---
Providers Date of admission: 02/09/23 23:30 Expected date of discharge: 02/11/23 Attending physician: Sharon Davies Consults: 02/09/23 23:30 Consult Physician Routine Consulting Provider: Toro Humphreys Consult Reason/Comments: sbo Do you want consulting provider notified?: Yes Primary care physician: [facility] Hospital Course: 77-year-old male date for evaluation. Patient comes in for evaluation of severe and sudden onset of abdominal pain and nausea no active vomiting. Patient recently as well as bowels believes that he is having recurrent kidney stones. 2 years ago. Patient also had recent atrial fibrillation but that does appear to be control currently. Patient's again symptoms were sudden onset than her significant and severe here in the emergency department with abdominal pain right-sided abdominal pain mid abdominal pain that started yesterday evening around 6 PM. He denies any nausea or vomiting. He reports no change in his bowel function. He reports having bowel movements yesterday and flatus. He had a computed tomography scan abdomen yesterday that showed ileal small bowel obstruction, moderate in degree. 1. Small bowel obstruction - CT of the abdomen completed upon admission reveals ileal small bowel obstruction of moderate degree -- Gen. surgery is consulted; recommending to keep patient nothing by mouth for now and continue with supportive care with IV fluids - Repeat abdominal x-ray is recommended 2. Hypertension; metoprolol 12.5 mg twice a day, lisinopril 15 mg daily 3. Atrial fibrillation; rate controlled on metoprolol 12.5 mg twice a day and Tambocor 50 mg every 12 hours; anticoagulation with L Gonzales 5 mg twice a day 4. Gastroesophageal reflux disease; continue PPI Ileus versus small bowel obstruction symptoms improved; Diet was advanced per Sx recs; patient discharged in a stable condition Patient Condition at Discharge: Serious Plan - Discharge Summary Discharge Rx Participant: No New Discharge Prescriptions: Continue Metoprolol Succinate (ER) [Toprol XL] 12.5 mg PO BID lisinopriL 15 mg PO DAILY Flecainide [Tambocor] 50 mg PO Q12HR Apixaban [Eliquis] 5 mg PO BID Baclofen [Lioresal] 10 mg PO BID PRN PRN Reason: Muscle Spasm Discharge Medication List Apixaban [Eliquis] 5 mg PO BID 08/17/20 [History] Metoprolol Succinate (ER) [Toprol XL] 12.5 mg PO BID 08/17/20 [History] Baclofen [Lioresal] 10 mg PO BID PRN 02/09/23 [History] Flecainide [Tambocor] 50 mg PO Q12HR 02/09/23 [History] lisinopriL 15 mg PO DAILY 02/09/23 [History] Follow up Appointment(s)/Referral(s): John Peterson MD [Primary Care Provider] - 1-2 days (Call Monday to make appt.) Patient Instructions/Handouts: Bowel Obstruction (DC) Discharge Disposition: HOME SELF-CARE
== END 2023-02-11 15:51 | disposition home or self-care (01) | DRG 390 ==
LOC: EC 20:23 → 4SSUR 23:30 → 5NMEDONC 02-10 00:03
PROVIDERS: ADMIT Hospitalist; ATTEND Hospitalist
DX: K56.609 Unspecified intestinal obstruction, unspecified as to partial versus complete obstruction (principal); F41.9 Anxiety disorder, unspecified; I10 Essential (primary) hypertension; I48.91 Unspecified atrial fibrillation; K21.9 Gastro-esophageal reflux disease without esophagitis; Z79.01 Long term (current) use of anticoagulants; Z79.899 Other long term (current) drug therapy; Z80.8 Family history of malignant neoplasm of other organs or systems; Z85.46 Personal history of malignant neoplasm of prostate; Z87.442 Personal history of urinary calculi; Z88.0 Allergy status to penicillin; Z88.2 Allergy status to sulfonamides; Z85.828 Personal history of other malignant neoplasm of skin
CPT/HCPCS: 36415; 74019; 74176; 80053; 82150; 83690; 83735; 84100; 85025; 85610; 85730; 96361; 96374; 96375; 99285

== ENCOUNTER → 2023-05-24 | Outpatient (CLI) | payer MEDICARE, OTHER ==
--- NOTE | 2023-05-24 10:09 | CT ---
EXAMINATION TYPE: CT brain wo con CT DLP: 1207 mGycm, Automated exposure control for dose reduction was used. DATE OF EXAM: 05/24/2023 9:42 AM COMPARISON: 07/15/2022.. CLINICAL INDICATION:Male, 77 years old with history of R41.3 MEMORY CHANGES, Changes in memory and di zziness. TECHNIQUE: Brain: Axial CT images of the brain were obtained with coronal and sagittal reformats created and rev iewed. Contrast used: None. Oral contrast used: None. FINDINGS: Brain: Extra-axial spaces: No abnormal extra-axial fluid collections. Ventricular system: Dilatation in proportion to cerebral atrophy. Cerebral parenchyma: Cerebral atrophy. No acute intraparenchymal hemorrhage or mass effect. The cox -white junction is well differentiated. Scattered hypoattenuating areas are seen within the white mat ter. Cerebellum: Unremarkable. Mass effect: No evidence of midline shift. Intracranial vasculature: Atherosclerotic calcifications of the intracranial vessels. Soft tissues: Normal. Calvarium/osseous structures: No depressed skull fracture. Paranasal sinuses and mastoid air cells: Mild scattered paranasal sinus disease. Visualized orbits: Orbital contents are intact. IMPRESSION: 1. No acute intracranial process. 2. Nonspecific white matter changes, likely secondary to chronic small vessel ischemic disease.
== END | disposition home or self-care (01) ==
LOC: RADCTMAIN 09:22
PROVIDERS: ATTEND Psychiatry & Neurology Neurology
DX: R41.3 Other amnesia (principal)
CPT/HCPCS: 70450

== ENCOUNTER → 2023-07-19 | Outpatient (CLI) | payer MEDICARE, OTHER ==
[2023-07-19 16:04] LABS: ALT 15 U/L (10-49); AST 16 U/L (14-35); Albumin 4.5 g/dL (3.8-4.9); Albumin/Globulin Ratio 1.96 Ratio (1.60-3.17); Alkaline Phosphatase 75 U/L (41-126); Blood Urea Nitrogen 15.4 mg/dL (9.0-27.0); Calcium 9.8 mg/dL (8.7-10.3); Carbon Dioxide 27.6 mmol/L (21.6-31.8); Chloride 106 mmol/L (96-109); Globulin 2.3 g/dL (1.6-3.3); Glucose 96 mg/dL (70-110); Potassium 4.6 mmol/L (3.5-5.5); Sodium 142 mmol/L (135-145); Total Bilirubin 0.7 mg/dL (0.3-1.2); Total Protein 6.8 g/dL (6.2-8.2)
== END | disposition home or self-care (01) ==
LOC: LABWHC1 08:51
PROVIDERS: ATTEND Internal Medicine Interventional Cardiology
DX: I10 Essential (primary) hypertension (principal)
CPT/HCPCS: 36415; 80053

== ENCOUNTER → 2023-11-01 | Outpatient (CLI) | payer MEDICARE, OTHER ==
[2023-11-01 15:17] LABS: Basophils # (A) 0.06 X 10*3/uL (0.00-0.10); Basophils % (A) 1.3 %; Eosinophils # (A) 0.06 X 10*3/uL (0.04-0.35); Eosinophils % (A) 1.3 %; HCT 44.4 % (39.6-50.0); HGB 14.8 g/dL (13.0-17.0); Lymphocytes # (A) 1.32 X 10*3/uL (0.90-5.00); Lymphocytes % (A) 27.7 %; MCHC 33.3 g/dL (32.0-37.0); MCV 95.9 FL (80.0-97.0); Mean Platelet Volume 11.1 FL (9.5-12.2); Monocytes # (A) 0.43 X 10*3/uL (0.20-1.00); NRBC Per 100 WBC 0 X 10*3/uL (0.00-0.01); Neutrophils # (A) 2.88 X 10*3/uL (1.80-7.70); Neutrophils % (A) 60.5 %; Platelet Count 259 X 10*3/uL (140-440); RBC 4.63 X 10*6/uL (4.40-5.60); RDW 12.7 % (11.5-14.5); WBC 4.76 X 10*3/uL (4.50-10.00)
[2023-11-01 15:22] LABS: ALT 17 U/L (10-49); AST 18 U/L (14-35); Albumin 4.7 g/dL (3.8-4.9); Albumin/Globulin Ratio 2.14 Ratio (1.60-3.17); Alkaline Phosphatase 87 U/L (41-126); BUN/Creat Ratio 14.89 Ratio (12.00-20.00); Blood Urea Nitrogen 13.4 mg/dL (9.0-27.0); Calcium 9.5 mg/dL (8.7-10.3); Chloride 105 mmol/L (96-109); Globulin 2.2 g/dL (1.6-3.3); Glucose 105 mg/dL (70-110); LDL Cholesterol,Calculated 121.4 mg/dL (0.0-131.0); Potassium 4.2 mmol/L (3.5-5.5); Sodium 142 mmol/L (135-145); T4, Free (Free Thyroxine) 1.22 ng/dL (0.80-1.80); Total Bilirubin 0.7 mg/dL (0.3-1.2); Total Protein 6.9 g/dL (6.2-8.2)
[2023-11-01 15:47] LABS: Prostate Specific Antigen <0.01 ng/mL (0.000-6.500)
== END | disposition home or self-care (01) ==
LOC: LABWHC1 10:06
PROVIDERS: ATTEND Internal Medicine Geriatric Medicine
DX: Z00.00 Encounter for general adult medical examination without abnormal findings (principal); I48.0 Paroxysmal atrial fibrillation; E78.5 Hyperlipidemia, unspecified; R73.9 Hyperglycemia, unspecified; Z85.46 Personal history of malignant neoplasm of prostate
CPT/HCPCS: 36415; 80053; 80061; 83036; 84153; 84439; 84443; 85025

== ENCOUNTER 2023-11-14 12:15 | Day surgery (SDC) | payer MEDICARE, OTHER ==
[2023-11-14] MEDS ORDERED: LACTATED RINGERS 1,000 ML BAG ONE (13:00)
[2023-11-14] MEDS ORDERED: PROPOFOL 10 MG/ML 20 ML VIAL IV ONE (13:13)
[2023-11-14] MEDS ORDERED: LIDOCAINE 1% INJ 10MG/ML (20 ML MDV) ONE (13:13)
== END 2023-11-14 14:28 ==
LOC: ORWHC2ENDO 12:15
PROVIDERS: ATTEND Surgery
DX: Z12.11 Encounter for screening for malignant neoplasm of colon (principal); K57.30 Diverticulosis of large intestine without perforation or abscess without bleeding; I10 Essential (primary) hypertension; N20.0 Calculus of kidney; E78.5 Hyperlipidemia, unspecified; Z90.79 Acquired absence of other genital organ(s); Z88.0 Allergy status to penicillin; Z88.2 Allergy status to sulfonamides; Z85.46 Personal history of malignant neoplasm of prostate; Z79.899 Other long term (current) drug therapy; Z79.01 Long term (current) use of anticoagulants

== ENCOUNTER 2024-06-03 03:47 | Inpatient (IN) | payer MEDICARE, OTHER ==
--- NOTE | 2024-06-03 04:37 | ED ---
General Adult HPI - General Chief complaint: Abdominal Pain Stated complaint: Vomiting, abd pain Time Seen by Provider: 06/03/24 04:06 Source: patient, family Mode of arrival: wheelchair Limitations: no limitations - History of Present Illness Initial comments: Patient is a 79-year-old gentleman past medical history of atrial fibrillation on Eliquis and flecainide, bilateral inguinal hernia surgery, prior bowel obstruction presenting today for abdominal pain, nausea, vomiting and hiccups. Patient is not sure when his last bowel movement was. His notes that on the he had a syncopal episode followed by a large volume loose stool. Yesterday PMD patient began having upper abdominal pain, he attempted milk of magnesia and an enema, without relief of pain or a bowel movement. Pain is sharp and intermittent, located in the epigastrium. Now has persistent hiccups that began after an episode of bilious emesis en route to the hospital. Aside from his epigastric pain he denies chest pain or shortness of breath. Denies recent fevers. Denies bloody emesis. No melena or hematochezia. Last dose of Eliquis was approximately 24 hours ago. - Related Data Home Medications Medication Instructions Recorded Confirmed Apixaban [Eliquis] 5 mg PO BID 08/17/20 06/03/24 Flecainide [Tambocor] 50 mg PO Q12HR 02/09/23 06/03/24 lisinopriL 30 mg PO DAILY 02/09/23 06/03/24 Acetaminophen [Tylenol Arthritis] 1,300 mg PO Q8H PRN 06/03/24 06/03/24 Butalb/APAP/Caff 50-325-40Mg 1 - 2 tab PO Q4H PRN MDD 6 tab 06/03/24 06/03/24 [Fioricet 50-325-40] clonazePAM [KlonoPIN] 0.25 - 0.5 mg PO HS PRN 06/03/24 06/03/24 Allergies Allergy/AdvReac Type Severity Reaction Status Date / Time Penicillins Allergy Severe Anaphylaxis Verified 06/03/24 08:27 Sulfa (Sulfonamide Allergy Anaphylaxis Verified 06/03/24 08:27 Antibiotics) Review of Systems ROS Statement: Those systems with pertinent positive or pertinent negative responses have been documented in the HPI. ROS Other: All systems not noted in ROS Statement are negative. Past Medical History Past Medical History: Cancer, GERD/Reflux, Prostate Disorder, Syncope Additional Past Medical History / Comment(s): Hx prostate cancer, kindey stone, bowel obstruction, covid History of Any Multi-Drug Resistant Organisms: None Reported Past Surgical History: Hernia Repair, Prostate Surgery, Tonsillectomy Additional Past Surgical History / Comment(s): Bilat hernia repair Past Anesthesia/Blood Transfusion Reactions: No Reported Reaction Additional Past Anesthesia/Blood Transfusion Reaction / Comment(s): Pt states after Prostate surgery it took him a year to get back to normal with his brain activity. States he had difficulty forming and putting together two sentences. Past Psychological History: Anxiety Smoking Status: Never smoker Past Alcohol Use History: Occasional Past Drug Use History: None Reported - Past Family History Father Family Medical History: Cancer Additional Family Medical History / Comment(s): Skin cancer General Exam - General Exam Comments Initial Comments: PE: CONSTITUTIONAL: [no apparent distress, well appearing frequently hiccuping] SKIN: [warm, dry, no jaundice, hives or petechiae] EYES:[ pupils are equally round, extraocular movements intact without nystagmus, clear conjunctiva, non-icteric sclera] HENT: [normocephalic, atraumatic, moist mucus membranes, oropharynx clear without exudates] NECK: , [Full range of motion, normal appearance] PULMONARY: [clear to auscultation without wheezes, rhonchi, or rales, normal excursion, no accessory muscle use and no stridor] CARDIOVASCULAR:[ regular rate, rhythm, normal S1 and S2. No appreciated murmurs, rubs or gallops. Strong radial pulses with intact distal perfusion. No lower extremity edema] GASTROINTESTINAL: [soft, active bowel sounds throughout, tenderness to palpation in the epigastrium and left upper quadrant, non-distended, no palpable masses, no rebound; guarding with palpation of the epigastrium and left upper quadrant, negative Paulino sign. No hepatosplenomegaly] GENITOURINARY: MUSCULOSKELETAL: [Extremities have no gross deformity, no edema, redness, or swelling. No calf swelling ] NEUROLOGIC: [_a/o x 3, GCS 15, normal mentation and speech. Moves all extremities x 4 without motor or sensory deficit] PSYCHIATRIC:[ _normal mood and affect, thought process is clear and linear] Limitations: no limitations Course Vital Signs 03/03/25 03/03/25 03/03/25 03:51 08:06 09:15 Temperature 98.0 F Pulse Rate 71 89 112 H Respiratory 20 18 18 Rate Blood Pressure 155/89 125/84 118/79 O2 Sat by Pulse 100 95 96 Oximetry 06/03/24 06/03/24 06/03/24 10:15 12:25 14:02 Temperature Pulse Rate 108 H 108 H 98 Respiratory 18 18 18 Rate Blood Pressure 114/81 130/85 126/77 O2 Sat by Pulse 95 95 94 L Oximetry 06/03/24 06/03/24 17:00 18:11 Temperature Pulse Rate 112 H 122 H Respiratory 18 18 Rate Blood Pressure 102/64 120/85 O2 Sat by Pulse 96 95 Oximetry EKG Findings - EKG Comments: EKG Findings:: Sinus rhythm, rate 64 bpm LA interval 1 9 9 ms QT/QTc 408/418 ms, left axis deviation, there is artifact present somewhat limiting interpretation however there are no ST elevations or depressions, Q waves noted in lead V1, [id number] to EKG performed on 08/17/2020, small Q waves were present at that time as well though today they do appear more prominent than prior Medical Decision Making - Medical Decision Making Was pt. sent in by a medical professional or institution (, PA, RENEWALS SPECIALIST, urgent care, hospital, or fci...) When possible be specific @ -No Did you speak to anyone other than the patient for history (EMS, parent, family, police, friend...)? What history was obtained from this source I spoke with patient's who assisted in providing history, does note that patient has mild dementia, provide history as noted in HPI, last bowel movement was loose stool on 29 May, tried milk of magnesia and an enema today without relief of symptoms, when had the symptoms previously had a large bowel obstruction. Did you review nursing and triage notes (agree or disagree)? Why? @ -I reviewed nursing and triage notes Were old charts reviewed (outside hosp., previous admission, EMS record, old EKG, old radiological studies, urgent care reports/EKG's, fci records)? Report findings @ -Medical records reviewed-Reviewed discharge summary from 02/09/2023 when patient had presented for abdominal pain, nausea, CT at that time showed ileal small bowel obstruction Differential Diagnosis (chest pain, altered mental status, abdominal pain women, abdominal pain men, vaginal bleeding, weakness, fever, dyspnea, syncope, headache, dizziness, GI bleed, back pain, seizure, CVA, palpatations, mental health, musculoskeletal)? @Differential Abdominal Pain Men: Appendicitis, cholecystitis, diverticulosis, ischemic bowel, pancreatitis, hepatitis, UTI, gastroenteritis, AAA, incarcerated hernia, bowel obstruction, constipation, inflammatory bowel, hepatitis, peptic ulcer disease, splenic infarction, perforated viscus, testicular torsion, this is not meant to be an all-inclusive list EKG interpreted by me (3pts min.). @ -As above X-rays interpreted by me (1pt min.). @ -None done CT interpreted by me (1pt min.). @ -I personally reviewed CT scan, pt appears to have a distended and fluid filled stomach as well as multiple small bowel loops with air fluid levels concerning for bowel obstruction, I see no free air, free fluid or masses, radiologist interpretation notes possible developing SBO, however given imaging and pt's exam, signs, symptoms, I feel imaging consistent with small bowel obstruction U/S interpreted by me (1pt. min.). @ -None done What testing was considered but not performed or refused? (CT, X-rays, U/S, labs)? Why? @ -None What meds were considered but not given or refused? Why? @ -None Did you discuss the management of the patient with other professionals (professionals i.e. , PA, RENEWALS SPECIALIST, lab, RT, psych nurse, manager social, open die inspector, teacher, credit or loans officer, correctional case records supervisor)? Give summary @ -Case discussed w/ Dr. Anna, general surg. plan for NG tube and will see on consult, appreciate recs Was smoking cessation discussed for >3mins.? @ -No Was critical care preformed (if so, how long)? @ -No Were there social determinants of health that impacted care today? How? (Homelessness, low income, unemployed, alcoholism, drug addiction, transportation, low edu. Level, literacy, decrease access to med. care, skilled nursing, rehab)? @ -No Was there de-escalation of care discussed even if they declined (Discuss DNR or withdrawal of care, Hospice)? @ -No What co-morbidities impacted this encounter? (DM, HTN, Smoking, COPD, CAD, Cancer, CVA, ARF, Chemo, Hep., AIDS, mental health diagnosis, sleep apnea, morbid obesity)? @Atrial fibrillation, prior abdominal surgeries, notes recent diagnosis of dementia Was patient admitted / discharged? Hospital course, mention meds given and rout e, prescriptions, significant lab abnormalities, going to OR and other pertinent info. @Admission- this is a pleasant 79-year-old gentleman presenting with his today for upper abdominal pain, nausea, vomiting, no bowel movement for approximately 1 week. Vital signs within acceptable limits on arrival. Patient is afebrile and not tachycardic. On my assessment he is well-appearing though uncomfortable, frequently hiccuping. Abdomen is soft with tenderness to palpation of the epigastrium and left upper quadrant, guarding with palpation of these regions. No palpable masses. Plan for CT abdomen pelvis, comprehensive labs, pain control, IV fluids, will also obtain chest x-ray, troponin and EKG given epigastric nature of pain could be atypical ACS. CT consistent with "developing small bowel obstruction". Given patient's persistent hiccups, nausea and pain, suspect pt has developed an SBO. Plan for surgical consult, NG tube, admission. Labs reassuring. Updated pt and to plan of care. Case discussed with Dr. Anna, will see pt on consult. Case discussed with BLAINE Ruggiero, kindly accepts pt for admission. 2 mg IV versed ordered to help pt tolerate NG tube placement which was placed successfully. Undiagnosed new problem with uncertain prognosis? @ -No Drug Therapy requiring intensive monitoring for toxicity (Heparin, Nitro, Insulin, Cardizem)? @ -No Were any procedures done? @ -No Diagnosis/symptom? @SBO Acute, or Chronic, or Acute on Chronic? @acute Uncomplicated (without systemic symptoms) or Complicated (systemic symptoms)? @complicated Side effects of treatment? @ -No Exacerbation, Progression, or Severe Exacerbation? @ -No Poses a threat to life or bodily function? How? (Chest pain, [place], [place], pneumonia, PE, COPD, DKA, ARF, appy, cholecystitis, CVA, Diverticulitis, Homicidal, Suicidal, threat to staff... and all critical care pts) @ Yes if left untreated could progress to bowel perforation and/or sepsis or septic shock - Lab Data Result diagrams: 06/03/24 04:40 06/03/24 04:40 Lab Results 06/03/24 06/03/24 06/03/24 Range/Units 04:40 04:40 04:40 WBC 7.5 (3.8-10.6) k/uL RBC 5.16 (4.30-5.90) m/uL Hgb 15.8 (13.0-17.5) gm/dL Hct 48.5 (39.0-53.0) % MCV 93.8 (80.0-100.0) fL MCH 30.5 (25.0-35.0) pg MCHC 32.5 (31.0-37.0) g/dL RDW 13.1 (11.5-15.5) % Plt Count 291 (150-450) k/uL MPV 8.5 Neutrophils % 70 % Lymphocytes % 22 % Monocytes % 5 % Eosinophils % 1 % Basophils % 0 % Neutrophils # 5.3 (1.3-7.7) k/uL Lymphocytes # 1.6 (1.0-4.8) k/uL Monocytes # 0.4 (0-1.0) k/uL Eosinophils # 0.1 (0-0.7) k/uL Basophils # 0.0 (0-0.2) k/uL PT 11.1 (10.0-12.5) sec INR 1.0 (<1.2) APTT 25.6 (22.0-30.0) sec Sodium 138 (137-145) mmol/L Potassium 4.0 (3.5-5.1) mmol/L Chloride 99 (98-107) mmol/L Carbon Dioxide 29 (22-30) mmol/L Anion Gap 10 mmol/L BUN 18 (9-20) mg/dL Creatinine 0.76 (0.66-1.25) mg/dL Est GFR (CKD-EPI)AfAm >90 (>60 ml/min/1.73 sqM) Est GFR (CKD-EPI)NonAf 88 (>60 ml/min/1.73 sqM) Glucose 99 (74-99) mg/dL Plasma Lactic Acid Chay (0.7-2.0) mmol/L Calcium 10.2 (8.4-10.2) mg/dL Total Bilirubin 1.3 (0.2-1.3) mg/dL AST 24 (17-59) U/L ALT 19 (4-49) U/L Alkaline Phosphatase 86 (38-126) U/L Troponin I (0.000-0.034) ng/mL Total Protein 7.8 (6.3-8.2) g/dL Albumin 4.9 (3.5-5.0) g/dL Amylase 65 (30-110) U/L Lipase 56 (23-300) U/L Blood Type Blood Type Confirm Blood Type Recheck Bld Type Recheck Status Antibody Screen Spec Expiration Date 06/03/24 06/03/24 06/03/24 Range/Units 04:40 04:40 04:40 WBC (3.8-10.6) k/uL RBC (4.30-5.90) m/uL Hgb (13.0-17.5) gm/dL Hct (39.0-53.0) % MCV (80.0-100.0) fL MCH (25.0-35.0) pg MCHC (31.0-37.0) g/dL RDW (11.5-15.5) % Plt Count (150-450) k/uL MPV Neutrophils % % Lymphocytes % % Monocytes % % Eosinophils % % Basophils % % Neutrophils # (1.3-7.7) k/uL Lymphocytes # (1.0-4.8) k/uL Monocytes # (0-1.0) k/uL Eosinophils # (0-0.7) k/uL Basophils # (0-0.2) k/uL PT (10.0-12.5) sec INR (<1.2) APTT (22.0-30.0) sec Sodium (137-145) mmol/L Potassium (3.5-5.1) mmol/L Chloride (98-107) mmol/L Carbon Dioxide (22-30) mmol/L Anion Gap mmol/L BUN (9-20) mg/dL Creatinine (0.66-1.25) mg/dL Est GFR (CKD-EPI)AfAm (>60 ml/min/1.73 sqM) Est GFR (CKD-EPI)NonAf (>60 ml/min/1.73 sqM) Glucose (74-99) mg/dL Plasma Lactic Acid Chay 1.4 (0.7-2.0) mmol/L Calcium (8.4-10.2) mg/dL Total Bilirubin (0.2-1.3) mg/dL AST (17-59) U/L ALT (4-49) U/L Alkaline Phosphatase (38-126) U/L Troponin I <0.012 (0.000-0.034) ng/mL Total Protein (6.3-8.2) g/dL Albumin (3.5-5.0) g/dL Amylase (30-110) U/L Lipase (23-300) U/L Blood Type O Positive Blood Type Confirm Blood Type Recheck No Previous Record Bld Type Recheck Status CABO Indicated Antibody Screen NEGATIVE Spec Expiration Date 06/06/2024 - 233906/03/24 Range/Units 04:45 WBC (3.8-10.6) k/uL RBC (4.30-5.90) m/uL Hgb (13.0-17.5) gm/dL Hct (39.0-53.0) % MCV (80.0-100.0) fL MCH (25.0-35.0) pg MCHC (31.0-37.0) g/dL RDW (11.5-15.5) % Plt Count (150-450) k/uL MPV Neutrophils % % Lymphocytes % % Monocytes % % Eosinophils % % Basophils % % Neutrophils # (1.3-7.7) k/uL Lymphocytes # (1.0-4.8) k/uL Monocytes # (0-1.0) k/uL Eosinophils # (0-0.7) k/uL Basophils # (0-0.2) k/uL PT (10.0-12.5) sec INR (<1.2) APTT (22.0-30.0) sec Sodium (137-145) mmol/L Potassium (3.5-5.1) mmol/L Chloride (98-107) mmol/L Carbon Dioxide (22-30) mmol/L Anion Gap mmol/L BUN (9-20) mg/dL Creatinine (0.66-1.25) mg/dL Est GFR (CKD-EPI)AfAm (>60 ml/min/1.73 sqM) Est GFR (CKD-EPI)NonAf (>60 ml/min/1.73 sqM) Glucose (74-99) mg/dL Plasma Lactic Acid Chay (0.7-2.0) mmol/L Calcium (8.4-10.2) mg/dL Total Bilirubin (0.2-1.3) mg/dL AST (17-59) U/L ALT (4-49) U/L Alkaline Phosphatase (38-126) U/L Troponin I (0.000-0.034) ng/mL Total Protein (6.3-8.2) g/dL Albumin (3.5-5.0) g/dL Amylase (30-110) U/L Lipase (23-300) U/L Blood Type Blood Type Confirm O Positive Blood Type Recheck Bld Type Recheck Status Antibody Screen Spec Expiration Date Disposition Clinical Impression: Small bowel obstruction Disposition: ADMITTED IP TO THIS [facility] Condition: Stable
[2024-06-03] MEDS: MORPHINE SULFATE 4 MG/ML SYRINGE IVP STA ×2 (04:55→06:56)
[2024-06-03] MEDS: SODIUM CHLORIDE 0.9% 500 ML 500 ML IV ONE (04:55)
[2024-06-03] MEDS: ONDANSETRON 4 MG/2 ML VIAL IVP STA ×2 (04:56→06:56)
[2024-06-03] MEDS: FAMOTIDINE 20 MG/2 ML VIAL IV STA (04:56)
[2024-06-03 05:09] LABS: Basophils % (A) 0 %; Eosinophils # (A) 0.1 k/uL (0-0.7); Eosinophils % (A) 1 %; HCT 48.5 % (39.0-53.0); HGB 15.8 gm/dL (13.0-17.5); Lymphocytes # (A) 1.6 k/uL (1.0-4.8); Lymphocytes % (A) 22 %; MCH 30.5 pg (25.0-35.0); MCHC 32.5 g/dL (31.0-37.0); MCV 93.8 fL (80.0-100.0); Mean Platelet Volume 8.5; Monocytes # (A) 0.4 k/uL (0-1.0); Monocytes % (A) 5 %; Neutrophils # (A) 5.3 k/uL (1.3-7.7); Neutrophils % (A) 70 %; Platelet Count 291 k/uL (150-450); RBC 5.16 m/uL (4.30-5.90); RDW 13.1 % (11.5-15.5); WBC 7.5 k/uL (3.8-10.6)
[2024-06-03 05:26] LABS: Partial Thromboplastin Time 25.6 sec (22.0-30.0); Prothrombin Time 11.1 sec (10.0-12.5)
--- NOTE | 2024-06-03 05:51 | XR ---
EXAM: XR Chest, 2 Views CLINICAL HISTORY: ITS.REASON XR Reason: epigastric pain hiccups TECHNIQUE: Frontal and lateral views of the chest. COMPARISON: No relevant prior studies available. IMPRESSION: 1. No acute cardiopulmonary abnormality.
--- NOTE | 2024-06-03 05:54 | CT ---
EXAM: CT Abdomen and Pelvis Without Intravenous Contrast CLINICAL HISTORY: ITS.REASON CT Reason: concern for bowel obstruction TECHNIQUE: Axial computed tomography images of the abdomen and pelvis without intravenous contrast. CTDI is 7.1 mGy and DLP is 425.4 mGy-cm. This CT exam was performed using one or more of the following dose reduction techniques: automated exposure control, adjustment of the mA and/or kV according to patient size, and/or use of iterative reconstruction technique. COMPARISON: CT Abdomen Pelvis dated february 09 2023 FINDINGS: Limitations: Limited examination in the absence of contrast and presence of patient motion. Lung bases: Unremarkable. No mass. No consolidation. ABDOMEN: Liver: Unremarkable. Gallbladder and bile ducts: Cholelithiasis. No gross findings to suggest cholecystitis. No ductal dilation. Pancreas: Unremarkable. No ductal dilation. Spleen: Unremarkable. No splenomegaly. Adrenals: Unremarkable. No mass. Kidneys and ureters: No evidence of radiopaque renal calculi or signs of collecting system dilatation. Stomach and bowel: Dilatation of multiple loops of small bowel measuring up to 3.2 cm. Findings may relate to developing small bowel obstruction. Consider short-term interval radiographic follow-up imaging. No mucosal thickening. PELVIS: Appendix: Normal appendix. Bladder: Unremarkable. No stones. Reproductive: Prostatectomy changes. ABDOMEN and PELVIS: Intraperitoneal space: No evidence of pneumatosis, portal venous gas, or free air. No significant fluid collection. Bones/joints: Degenerative changes in the spine. No acute fracture. No dislocation. Soft tissues: Bilateral inguinal hernia containing fat. Umbilical hernia containing fat. Vasculature: Aortic root calcifications. Atherosclerotic disease. No abdominal aortic aneurysm. Lymph nodes: Unremarkable. No enlarged lymph nodes. IMPRESSION: 1. Limited examination in the absence of contrast and presence of patient motion. 2. No evidence of radiopaque renal calculi or signs of collecting system dilatation. 3. Dilatation of multiple loops of small bowel measuring up to 3.2 cm. Findings may relate to developing small bowel obstruction. Consider short-term interval radiographic follow-up imaging. 4. No evidence of pneumatosis, portal venous gas, or free air. <MYCVCSECTION> Communications: 06/03/24 06:09 Verify Receipt Verified receipt with lisa henry for Dr. Biswas on 06/03 06:09 (-05:00)
[2024-06-03] MEDS: chlorproMAZINE 25 MG/ML 2 ML AMP IM STA (06:01)
[2024-06-03] MEDS ORDERED: NALOXONE 0.4 MG/ML 1 ML VIAL IV PRN (06:23)
[2024-06-03] MEDS ORDERED: HYDROmorphone 0.5 MG/0.5 ML SYRINGE IVP PRN (06:23)
[2024-06-03] MEDS ORDERED: BACLOFEN 10 MG TAB PO PRN (06:29)
[2024-06-03 06:38] LABS: ALT 19 U/L (4-49); AST 24 U/L (17-59); African American GFR (CKD) >90 (>60 ml/min/1.73 sqM); Albumin 4.9 g/dL (3.5-5.0); Alkaline Phosphatase 86 U/L (38-126); Amylase 65 U/L (30-110); Anion Gap 10 mmol/L; Blood Urea Nitrogen 18 mg/dL (9-20); Calcium 10.2 mg/dL (8.4-10.2); Carbon Dioxide 29 mmol/L (22-30); Chloride 99 mmol/L (98-107); Glucose 99 mg/dL (74-99); Lipase 56 U/L (23-300); Non-African American GFR(CKD) 88 (>60 ml/min/1.73 sqM); Sodium 138 mmol/L (137-145); Total Bilirubin 1.3 mg/dL (0.2-1.3); Total Protein 7.8 g/dL (6.3-8.2)
[2024-06-03] MEDS: MIDAZOLAM 2 MG/2 ML VIAL IV ONE (06:57)
[2024-06-03] MEDS: DEXTROSE 5%-0.45% NACL 1,000 ML IV SCH (07:00)
--- NOTE | 2024-06-03 08:03 | XR ---
EXAMINATION TYPE: XR chest 1V DATE OF EXAM: 06/03/2024 7:53 AM COMPARISON: Earlier in the day CLINICAL INDICATION: Male, 79 years old with history of NGT placement, TECHNIQUE: XR chest 1V views of the chest are obtained. FINDINGS: Demonstrated are scattered senescent parenchymal change. NG tube is seen coursing towards the stomac h. There is no evidence for focal infiltrate. The heart is stable. Hilar and mediastinal structures are within normal limits. Degenerative changes are seen of the dorsal spine. IMPRESSION: 1. Chronic changes without evidence for acute pulmonary disease. [facility], , 06/03/2024 8:00 AM
[2024-06-03] MEDS: APIXABAN 5 MG TAB PO SCH (08:24)
[2024-06-03] MEDS: FLECAINIDE 50 MG TAB PO SCH (08:24)
[2024-06-03] MEDS: METOPROLOL SUCCINATE (ER) 25 MG TAB.ER.24H PO SCH (08:24)
[2024-06-03] MEDS: lisinopriL 5 MG TAB PO SCH (08:24)
[2024-06-03] MEDS: PANTOPRAZOLE 40 MG/10 ML VIAL IV SCH (09:53)
[2024-06-03] MEDS ORDERED: KETOROLAC 15 MG/ML 1 ML VIAL IVP PRN (11:26)
--- NOTE | 2024-06-03 11:35 | P.HPIM ---
History of Present Illness 79-year-old male came in with nausea vomiting hiccups found to have small bowel obstruction patient last bowel movement was 2 days ago does have some stool. Patient had multiple abdominal surgeries in the past. Patient does have history of atrial fibrillation presently sinus tachycardia patient is receiving flecainide. REVIEW OF SYSTEMS: All other systems are negative except those mentioned in the HPI PHYSICAL EXAMINATION: GENERAL: The patient is alert and oriented x3, not in any acute distress. Well developed, well nourished. HEENT: Pupils are round and equally reacting to light. EOMI. No scleral icterus. No conjunctival pallor. Normocephalic, atraumatic. No pharyngeal erythema. No thyromegaly. CARDIOVASCULAR: S1 and S2 present. No murmurs, rubs, or gallops. PULMONARY: Chest is clear to auscultation, no wheezing or crackles. ABDOMEN: Soft, nontender, nondistended, sluggish bowel sounds. No palpable organomegaly. MUSCULOSKELETAL: No joint swelling or deformity. EXTREMITIES: No cyanosis, clubbing, or pedal edema. NEUROLOGICAL: Gross neurological examination did not reveal any focal deficits. SKIN: No rashes. Assessment and plan -Partial small bowel obstruction: Conservative measures NG tube to suction, IV fluids -Atrial fibrillation patient is presently sinus tachycardia patient received flecainide will monitor, continue Eliquis as we are not anticipating any surgery -Gastroesophageal flux disease -Benign prostatic atrophy -Constipation will order Dulcolax suppository DVT prophylaxis: On anticoagulation with Eliquis Past Medical History Past Medical History: Cancer, GERD/Reflux, Prostate Disorder, Syncope Additional Past Medical History / Comment(s): Hx prostate cancer, kindey stone, bowel obstruction, covid History of Any Multi-Drug Resistant Organisms: None Reported Past Surgical History: Hernia Repair, Prostate Surgery, Tonsillectomy Additional Past Surgical History / Comment(s): Bilat hernia repair Past Anesthesia/Blood Transfusion Reactions: No Reported Reaction Additional Past Anesthesia/Blood Transfusion Reaction / Comment(s): Pt states after Prostate surgery it took him a year to get back to normal with his brain activity. States he had difficulty forming and putting together two sentences. Past Psychological History: Anxiety Smoking Status: Never smoker Past Alcohol Use History: Occasional Past Drug Use History: None Reported - Past Family History Father Family Medical History: Cancer Additional Family Medical History / Comment(s): Skin cancer Medications and Allergies Home Medications Medication Instructions Recorded Confirmed Type Apixaban [Eliquis] 5 mg PO BID 08/17/20 06/03/24 History Flecainide [Tambocor] 50 mg PO Q12HR 02/09/23 06/03/24 History lisinopriL 30 mg PO DAILY 02/09/23 06/03/24 History Acetaminophen [Tylenol Arthritis] 1,300 mg PO Q8H PRN 06/03/24 06/03/24 History Butalb/APAP/Caff 50-325-40Mg 1 - 2 tab PO Q4H PRN MDD 6 tab 06/03/24 06/03/24 History [Fioricet 50-325-40] clonazePAM [KlonoPIN] 0.25 - 0.5 mg PO HS PRN 06/03/24 06/03/24 History Allergies Allergy/AdvReac Type Severity Reaction Status Date / Time Penicillins Allergy Severe Anaphylaxis Verified 06/03/24 08:27 Sulfa (Sulfonamide Allergy Anaphylaxis Verified 06/03/24 08:27 Antibiotics) Physical Exam Vitals: Vital Signs Temp Pulse Resp BP Pulse Ox 06/03/24 09:15 108 H 18 114/81 95 06/03/24 08:06 89 18 125/84 95 06/03/24 03:51 98.0 F 71 20 155/89 100 Intake and Output 06/02/24 06/03/24 06/03/24 22:59 06:59 14:59 Intake Total 500 Balance 500 Intake: IV 500 Invasive Line 1 500 Other: Voiding Method Toilet Weight 70.307 kg Results CBC & Chem 7: 06/03/24 04:40 06/03/24 04:40
[2024-06-03] MEDS: LACTATED RINGERS 1,000 ML IV SCH (12:03)
--- NOTE | 2024-06-03 12:06 | P.GSCN ---
History of Present Illness Consult date: 06/03/24 History of present illness: CHIEF COMPLAINT: Abdominal pain HISTORY OF PRESENT ILLNESS: This is a 79-year-old male who presented to the hospital with complaints of abdominal pain with nausea and vomiting. Patient also was having issues with excessive hiccups. Per family at bedside symptoms started yesterday. He has been constipated they have tried laxatives and enemas with no results. His pain continued to increase yesterday and therefore he came into the ER for further evaluation. CT scan abdomen pelvis had shown findings of the small bowel obstruction. Patient has had NG tube placed and has had improvement in symptoms. Family member reports that the abdominal distention has improved. He still had no flatus or bowel movement. Patient had a bowel obstruction that was managed conservatively about 2 years ago. Patient's family reports that he has been having abdominal distention after eating. Last bowel movement about 4 days ago. His last colonoscopy was about 2 years ago and was normal at that time. Patient does have a history of atrial fibrillation takes Eliquis at home. Last dose of Eliquis was yesterday. He does have a past surgical history of a bilateral inguinal hernia repair and prostate cancer with surgery about 15 years ago. PAST MEDICAL HISTORY: See list. PAST SURGICAL HISTORY: See list. MEDICATIONS: See list. ALLERGIES: See list. SOCIAL HISTORY: No illicit drug use. REVIEW OF SYSTEMS: CONSTITUTIONAL: Denies fever or chills. HEENT: Denies blurred vision, vision changes, or eye pain. Denies hemoptysis ENDOCRINE: Denies heat or cold intolerance. CARDIOVASCULAR: Denies chest pain or pressure. RESPIRATORY: No shortness of breath. GASTROINTESTINAL: please refer to HPI otherwise unremarkable NEURO: Denies history of seizures. PSYCH: No depression or suicidal ideation HEMATOLOGIC: Denies bleeding disorders. LYMPHATIC: The patient denies any lumps and bumps around the neck. GENITOURINARY: Denies any blood in urine or increased urinary frequency. MUSCULOSKELETAL: Denies myalgias. Denies joint swelling. Denies decreased range of motion beyond patients baseline. SKIN: Denies pruitis. Denies rash. PHYSICAL EXAM: VITAL SIGNS: Reviewed GENERAL: lethargic HEENT: No sclera icterus. Extraocular movements grossly intact. Moist buccal mucosa. Head is atraumatic, normocephalic. Hears conversational speech. No nasal drainage. NECK: Supple without lymphadenopathy. CHEST: Non-labored respirations and equal bilateral excursions. CARDIOVASCULAR: Palpable 2+ radial pulses. ABDOMEN: Soft. Nondistended. Mild discomfort mid abdomen. No rebound or guarding MUSCULOSKELETAL: No clubbing or cyanosis. NEUROLOGIC: No focal or lateralizing signs. Cranial nerves II through XII grossly intact. PSYCH: Appropriate affect. Alert and oriented to person, place and time. SKIN: Well perfused. Good skin turgor. LABORATORY DATA: WBC 7.5 Hgb 15.8 PLT 291 INR 1.0 Sodium 130 potassium 4.0 creatinine 0.76 IMAGING: CT scan abdomen pelvis reports dilatation of multiple loops of small bowel measuring up to 3.2 cm. Findings may relate to developing small bowel obstruction. ASSESSMENT: 1. Small bowel obstruction 2. History of abdominal surgeries 3. History of A-fib on Eliquis at home PLAN: -Small bowel follow-through with gastrografin ordered for further diagnostic and therapeutic evaluation of small bowel obstruction -Continue NG tube for decompression -Keep patient n.p.o. except medications -Continue IV fluids -Hold Eliquis in case surgical intervention is required Physician Extractor Operator note has been reviewed by physician. Signing provider agrees with the documented findings, assessment, and plan of care. Past Medical History Past Medical History: Cancer, GERD/Reflux, Prostate Disorder, Syncope Additional Past Medical History / Comment(s): Hx prostate cancer, kindey stone, bowel obstruction, covid History of Any Multi-Drug Resistant Organisms: None Reported Past Surgical History: Hernia Repair, Prostate Surgery, Tonsillectomy Additional Past Surgical History / Comment(s): Bilat hernia repair Past Anesthesia/Blood Transfusion Reactions: No Reported Reaction Additional Past Anesthesia/Blood Transfusion Reaction / Comm: Pt states after Prostate surgery it took him a year to get back to normal with his brain activity. States he had difficulty forming and putting together two sentences. Past Psychological History: Anxiety Smoking Status: Never smoker Past Alcohol Use History: Occasional Past Drug Use History: None Reported - Past Family History Father Family Medical History: Cancer Additional Family Medical History / Comment(s): Skin cancer Medications and Allergies Home Medications Medication Instructions Recorded Confirmed Type Apixaban [Eliquis] 5 mg PO BID 08/17/20 06/03/24 History Flecainide [Tambocor] 50 mg PO Q12HR 02/09/23 06/03/24 History lisinopriL 30 mg PO DAILY 02/09/23 06/03/24 History Acetaminophen [Tylenol Arthritis] 1,300 mg PO Q8H PRN 06/03/24 06/03/24 History Butalb/APAP/Caff 50-325-40Mg 1 - 2 tab PO Q4H PRN MDD 6 tab 06/03/24 06/03/24 History [Fioricet 50-325-40] clonazePAM [KlonoPIN] 0.25 - 0.5 mg PO HS PRN 06/03/24 06/03/24 History Allergies Allergy/AdvReac Type Severity Reaction Status Date / Time Penicillins Allergy Severe Anaphylaxis Verified 06/03/24 08:27 Sulfa (Sulfonamide Allergy Anaphylaxis Verified 06/03/24 08:27 Antibiotics) Surgical - Exam Vital Signs Temp Pulse Resp BP Pulse Ox 98.0 F 71 20 155/89 100 06/03/24 03:51 06/03/24 03:51 06/03/24 03:51 06/03/24 03:51 06/03/24 03:51 Results - Labs 06/03/24 04:40 06/03/24 04:40 Diabetes panel 06/03/24 Range/Units 04:40 Sodium 138 (137-145) mmol/L Potassium 4.0 (3.5-5.1) mmol/L Chloride 99 (98-107) mmol/L Carbon Dioxide 29 (22-30) mmol/L BUN 18 (9-20) mg/dL Creatinine 0.76 (0.66-1.25) mg/dL Glucose 99 (74-99) mg/dL Calcium 10.2 (8.4-10.2) mg/dL AST 24 (17-59) U/L ALT 19 (4-49) U/L Alkaline Phosphatase 86 (38-126) U/L Total Protein 7.8 (6.3-8.2) g/dL Albumin 4.9 (3.5-5.0) g/dL Calcium panel 06/03/24 Range/Units 04:40 Calcium 10.2 (8.4-10.2) mg/dL Albumin 4.9 (3.5-5.0) g/dL Pituitary panel 06/03/24 Range/Units 04:40 Sodium 138 (137-145) mmol/L Potassium 4.0 (3.5-5.1) mmol/L Chloride 99 (98-107) mmol/L Carbon Dioxide 29 (22-30) mmol/L BUN 18 (9-20) mg/dL Creatinine 0.76 (0.66-1.25) mg/dL Glucose 99 (74-99) mg/dL Calcium 10.2 (8.4-10.2) mg/dL Adrenal panel 06/03/24 Range/Units 04:40 Sodium 138 (137-145) mmol/L Potassium 4.0 (3.5-5.1) mmol/L Chloride 99 (98-107) mmol/L Carbon Dioxide 29 (22-30) mmol/L BUN 18 (9-20) mg/dL Creatinine 0.76 (0.66-1.25) mg/dL Glucose 99 (74-99) mg/dL Calcium 10.2 (8.4-10.2) mg/dL Total Bilirubin 1.3 (0.2-1.3) mg/dL AST 24 (17-59) U/L ALT 19 (4-49) U/L Alkaline Phosphatase 86 (38-126) U/L Total Protein 7.8 (6.3-8.2) g/dL Albumin 4.9 (3.5-5.0) g/dL
[2024-06-03] MEDS: MORPHINE SULFATE 4 MG/ML SYRINGE IV PRN (13:59)
[2024-06-03 14:24] LABS: Appearance,Urine Cloudy (Clear); Bilirubin,Urine Negative (Negative); Blood,Urine Negative (Negative); Color,Urine Yellow; Glucose,Urine (UA) Negative (Negative); Ketones,Urine 2+ (Negative); Leukocyte Esterase,Urine Negative (Negative); Mucus,Urine Rare /hpf; Nitrite,Urine Negative (Negative); Protein,Urine Trace (Negative); RBC,Urine 1 /hpf (0-5); Specific Gravity,Urine 1.025 (1.001-1.035); Urobilinogen,Urine <2.0 mg/dL (<2.0); WBC,Urine 4 /hpf (0-5)
[2024-06-03] MEDS: PROCHLORPERAZINE INJ 10 MG/2 ML VIAL IVP PRN (16:08)
[2024-06-03] MEDS: bisacodyL 10 MG SUPP RECTAL STA (18:06)
[2024-06-04 08:15] LABS: HCT 44.1 % (39.0-53.0); HGB 14.3 gm/dL (13.0-17.5); MCH 31.8 pg (25.0-35.0); MCHC 32.5 g/dL (31.0-37.0); MCV 97.9 fL (80.0-100.0); Mean Platelet Volume 8.6; Platelet Count 269 k/uL (150-450); RDW 13.3 % (11.5-15.5); WBC 7.9 k/uL (3.8-10.6)
[2024-06-04 08:22] LABS: African American GFR (CKD) >90 (>60 ml/min/1.73 sqM); Anion Gap 6 mmol/L; Blood Urea Nitrogen 22 mg/dL (9-20); Calcium 9.3 mg/dL (8.4-10.2); Carbon Dioxide 32 mmol/L (22-30); Chloride 106 mmol/L (98-107); Glucose 89 mg/dL (74-99); Non-African American GFR(CKD) 83 (>60 ml/min/1.73 sqM); Potassium 4.2 mmol/L (3.5-5.1); Sodium 144 mmol/L (137-145)
[2024-06-04] MEDS ORDERED: lisinopriL 10 MG TAB PO SCH ×2 (09:00)
[2024-06-04] MEDS ORDERED: ENOXAPARIN 40 MG/0.4 ML SYRINGE SQ SCH (09:00)
--- NOTE | 2024-06-04 10:31 | P.PN ---
Subjective Progress Note Date: 06/04/24 CHIEF COMPLAINT: SBO HISTORY OF PRESENT ILLNESS: Patient is abdominal pain is improving. He did have bowel movements and flatus after his small bowel follow-through. Small bowel follow-through final results are still pending. Patient denies any abdominal pain. Denies any nausea. No significant output through NG tube. Afebrile. WBC 7.9 Hgb 14.3 PHYSICAL EXAM: VITAL SIGNS: Reviewed GENERAL: Well-developed in no acute distress. HEENT: No sclera icterus. Extraocular movements grossly intact. Moist buccal mucosa. Head is atraumatic, normocephalic. Hears conversational speech. No nasal drain age. NECK: Supple without lymphadenopathy. CHEST: Non-labored respirations and equal bilateral excursions. CARDIOVASCULAR: Palpable 2+ radial pulses. ABDOMEN: Soft. Nondistended. Nontender. MUSCULOSKELETAL: No clubbing or cyanosis. NEUROLOGIC: No focal or lateralizing signs. Cranial nerves II through XII grossly intact. PSYCH: Appropriate affect. Alert and oriented to person, place and time. SKIN: Well perfused. Good skin turgor. ASSESSMENT: 1. Small bowel obstruction resolved with conservative management 2. History of abdominal surgeries 3. History of A-fib on Eliquis at home PLAN: -Discontinue NG tube -Start clear liquid diet -Encourage patient to increase activity level -Continue to monitor Physician Fountain Dispenser note has been reviewed by physician. Signing provider agrees with the documented findings, assessment, and plan of care. Objective - Vital Signs Vital signs: Vital Signs Temp 98.0 F 06/04/24 07:00 Pulse 76 06/04/24 07:00 Resp 16 06/04/24 07:00 BP 122/65 06/04/24 07:00 Pulse Ox 94 L 06/04/24 07:00 FiO2 Intake & Output 06/03/24 06/04/24 06/04/24 18:59 06:59 18:59 Output Total 75 Balance -75 Output: Gastric Drainage 75 Other: Voiding Method Toilet # Voids 2 # Bowel Movements 1 - Labs CBC & Chem 7: 06/04/24 07:11 06/04/24 07:11 Labs: Abnormal Lab Results - Last 24 Hours (Table) 06/03/24 06/04/24 Range/Units 13:54 07:11 Carbon Dioxide 32 H (22-30) mmol/L BUN 22 H (9-20) mg/dL Urine Protein Trace H (Negative) Urine Ketones 2+ H (Negative) Urine Mucus Rare H (None) /hpf
--- NOTE | 2024-06-04 13:47 | FL ---
EXAMINATION TYPE: FL small bowel follow through DATE OF EXAM: 06/03/2024 4:46 PM COMPARISON: 06/03/2024 CLINICAL INDICATION:Male, 79 years old with history of abdominal pain, follow up on SBO; TECHNIQUE: The procedure was explained and patient history elicited. All patient questions were ans wered prior to start of procedure. A drug and alcohol treatment specialist radiograph of the abdomen was also reviewed. The patient was asked to ingest liquid Isovue and incremental frontal abdominal radiographs were then taken until contrast was visualized in the cecum. FINDINGS: The drug and alcohol treatment specialist abdominal radiograph demonstrates a normal bowel gas pattern without dilated loops of small or large bowel. There is no evidence of organomegaly or pneumoperitoneum. No abnormal calcifications . The visualized osseous structures are intact. Contrast is seen extending from the duodenojejunal junction into the cecum after 3 hours 30 minutes, which is within the expected time period. The small bowel follows normal distribution and contour wi thout any evidence of extraluminal or intraluminal irregularity. There is no displacement of bowel l oops or extraluminal extravasation of contrast material. Small bowel mucosal folds are felt to be wit hin normal limits. IMPRESSION: Slightly delayed small bowel examination, no evidence for obstruction. [facility], , 06/03/2024 5:04 PM
[2024-06-04 14:59] VITALS: BP 111/67; PULSE 58; RESP 17; TEMP 98.6
--- NOTE | 2024-06-10 09:48 | CDI ---
Documentation Clarification Form Date: 06/10/2024 09:32:41 AM From: Karissa Stack RN, CCDS Email: [email or web address] Admit Date: 06/03/2024 10:53:00 PM Patient Name: Vikas Montoya Visit Number: [id number] Discharge Date: 06/04/2024 03:50:00 PM ATTENTION: The Clinical Documentation Specialists (CDI) and [facility] Coding Staff appreciate your assistance in clarifying documentation. Please respond to the clarification below the line at the bottom and electronically sign. The CDI & [facility] [employer] Coding staff will review the response and follow-up if needed. Please note: Queries are made part of the Legal Health Record. If you have any questions, please contact the author of this message via ITS. Doctor Rajeev Andrews Atrial Fibrillation is documented in the H&P and progress note. Additional clarification regarding the type of atrial fibrillation is requested. History/Risk Factors: atrial fibrillation on Eliquis and Flecainide, bilateral inguinal hernia surgery, prior bowel obstruction. Presented for abdominal pain, nausea, vomiting and hiccups. Admitted with small bowel obstruction. Clinical Indicators: 06/03 EKG: atrial tachycardia ED: "atrial fibrillation on Eliquis and Flecainide." H&P: "Atrial fibrillation, patient is presently sinus tachycardia. Patient received Flecainide will monitor. Continue Eliquis as we are not anticipating any surgery." Treatment: Flecainide 50mg po Q12H 06/03-06/04; Metoprolol on hold for NPO status; Eliquis on hold for NPO status Please clarify the type of atrial fibrillation, if known: [ ] Chronic [ ] Permanent [ x] Paroxysmal [ ] Persistent [ ] Other, please specify [ ] Unable to determine (Template Last Revised: August 2020) MTDD
--- NOTE | 2024-06-10 19:02 | P.DS ---
Providers Date of admission: 06/03/24 22:53 Expected date of discharge: 06/04/24 Attending physician: Sharon Davies Consults: 06/03/24 06:23 Consult Physician Urgent Consulting Provider: Lorie Anna Consult Reason/Comments: Small Bowel obstruction Do you want consulting provider notified?: Already Contacted Primary care physician: John Peterson [facility] Hospital Course: Final diagnosis -Partial small bowel obstruction: Resolved with conservative measures, patient is having bowel movements -Atrial fibrillation, chronic, maintained on flecainide as well as Eliquis -Gastroesophageal reflux disease -Benign prostatic atrophy -Constipation history -GI prophylaxis -DVT prophylaxis: On anticoagulation with Eliquis Full code Discharge disposition Patient is being discharged in a stable condition with guarded prognosis to home. Patient will follow-up with Dr. Peterson in the outpatient setting upon discharge. Patient is to continue with current medications and close outpatient follow-up with general surgery as needed patient to continue a. Full liquid diet as it is over the next few days to low fiber. Total time taken is greater than 35 minutes. Hospital course This is a 79-year-old male who was recently admitted with concerns of partial small bowel obstruction with abdominal pain. Patient had NG tube placed maintained on bowel rest with conservative management being evaluated by general surgery. Patient abdominal pain improved and patient is having bowel movements with conservative management with no plans of surgical intervention. NG tube removed and patient is tolerating diet and may slowly advance over the next few days while at home. Patient has been cleared by general surgery and recommend outpatient follow-up as needed. Please refer to other consultation notes for further HPI. Patient and are extremely keen on going home today. Discharged home currently no reports of chest pain, shortness of breath, or palpitations. Patient is afebrile. No reports of nausea or vomiting and patient is tolerating diet. Patient will be discharged home today. Physical exam: Gen: This is a 79-year-old male who is awake, alert and oriented x 3, thin built, elderly appearing HEENT: Head is atraumatic, normocephalic. Pupils equal, round. Sclerae is anicteric. NECK: Supple. No JVD. No lymphadenopathy. No thyromegaly. LUNGS: Clear to auscultation. No wheezes or rhonchi. No intercostal retractions. HEART: Regular rate and rhythm. No murmur. ABDOMEN: Soft. Bowel sounds are present. No masses. No tenderness. EXTREMITIES: No pedal edema. No calf tenderness. NEUROLOGICAL: Patient is awake, alert and oriented x3. Cranial nerves 2 through 12 are grossly intact. Please refer to medication reconciliation sheet for a list of medications. The impression and plan of care has been dictated by Nabila Andrew, Nurse Practitioner as directed. Dr. Juliana MD I have performed a history and examination and MDM of this patient, discussed the same with the dictator, and agree with the dictator's assessment and plan as written ,documented as a scribe. Based on total visit time, I have performed more than 50% of the visit. Patient Condition at Discharge: Stable Plan - Discharge Summary Discharge Rx Participant: No New Discharge Prescriptions: Continue lisinopriL 30 mg PO DAILY Flecainide [Tambocor] 50 mg PO Q12HR clonazePAM [KlonoPIN] 0.25 - 0.5 mg PO HS PRN PRN Reason: Anxiety Butalb/APAP/Caff 50-325-40Mg [Fioricet 50-325-40] 1 - 2 tab PO Q4H PRN MDD 6 tab PRN Reason: Migraine Headache Acetaminophen [Tylenol Arthritis] 1,300 mg PO Q8H PRN PRN Reason: Pain Apixaban [Eliquis] 5 mg PO BID Discharge Medication List Apixaban [Eliquis] 5 mg PO BID 08/17/20 [History] Flecainide [Tambocor] 50 mg PO Q12HR 02/09/23 [History] lisinopriL 30 mg PO DAILY 02/09/23 [History] Acetaminophen [Tylenol Arthritis] 1,300 mg PO Q8H PRN 06/03/24 [History] Butalb/APAP/Caff 50-325-40Mg [Fioricet 50-325-40] 1 - 2 tab PO Q4H PRN MDD 6 tab 06/03/24 [History] clonazePAM [KlonoPIN] 0.25 - 0.5 mg PO HS PRN 06/03/24 [History] Follow up Appointment(s)/Referral(s): John Peterson MD [Primary Care Provider] - 1-2 days (please call to make your appointment) Wilfrido,Lorie N, MD [STAFF PHYSICIAN] - As Needed (please call to make your appointment) Patient Instructions/Handouts: Bowel Obstruction (DC) Activity/Diet/Wound Care/Special Instructions: Activity limited until follow-up Follow-up with primary care provider on discharge Follow-up with general surgery Continue full liquid diet and slowly advance over the next 2 days to low fiber Discharge Disposition: HOME SELF-CARE
== END 2024-06-04 15:50 | disposition home or self-care (01) | DRG 390 ==
LOC: EC 03:47 → 6NMEDSUR 06:23 → 1SOBS 15:31 → OBSVTOIN 22:53
PROVIDERS: ADMIT Hospitalist; ATTEND Hospitalist
PROC: 0D9670Z Drainage of Stomach with Drainage Device, Via Natural or Artificial Opening (ICD-10-PCS; principal; 2024-06-03)
DX: K56.600 Partial intestinal obstruction, unspecified as to cause (principal); F03.A0 Unspecified dementia, mild, without behavioral disturbance, psychotic disturbance, mood disturbance, and anxiety; I48.0 Paroxysmal atrial fibrillation; N42.89 Other specified disorders of prostate; Z79.01 Long term (current) use of anticoagulants; Z79.899 Other long term (current) drug therapy; Z85.46 Personal history of malignant neoplasm of prostate
CPT/HCPCS: 36415; 71045; 71046; 74176; 74250; 80048; 80053; 81001; 82150; 83605; 83690; 84484; 85025; 85027; 85610; 85730; 86850; 86900; 86901; 93005; 96361; 96372; 96374; 96375; 96376; 99285

== ENCOUNTER 2024-07-12 08:02 | Day surgery (SDC) | payer MEDICARE, OTHER ==
[2024-07-10 15:28] VITALS: BMI 22.0
--- NOTE | 2024-07-12 07:34 | P.GSHP ---
History of Present Illness H&P Date: 07/12/24 CHIEF COMPLAINT: History of intra-abdominal adhesions with bowel obstructions HISTORY OF PRESENT ILLNESS: The patient is a 79-year-old male who presents with history of intra-abdominal adhesions from multiple prior surgeries including increasing abdominal pain. He has had recent recurrent abdominal pain with bowel obstructions. He now presents for diagnostic laparoscopy including lysis of adhesions. PAST MEDICAL HISTORY: Please see list. PAST SURGICAL HISTORY: Please see list. MEDICATIONS: Please see list. ALLERGIES: Please see list. SOCIAL HISTORY: No illicit drug use FAMILY HISTORY: No reports of Crohn disease or ulcerative colitis. REVIEW OF ORGAN SYSTEMS: CONSTITUTIONAL: Denies any fever or chills. Denies recent weight loss or weight gain. HEENT: Wears glasses. No difficulty swallowing. LYMPHATIC: The patient denies any lumps and bumps around the neck. ENDOCRINE: Denies any thyroid disorders. Denies any blood sugar glucose intolerance. RESPIRATORY: Denies pneumonia. Denies any troubles with breathing or dyspnea on exertion. CARDIOVASCULAR: Denies any chest pain, palpitations, or recent heart attacks. GASTROINTESTINAL: Denies heart burn, constipation or bright red blood per rectum. GENITOURINARY: History of prostate cancer. MUSCULOSKELETAL: Denies any back pain, stiffness, joint arthritis. NEUROLOGIC: Denies any numbness or tingling along the distal extremities. No seizure disorders or headaches. PSYCHIATRIC: Denies depression or suidical ideation. HEMATOLOGIC: Denies any abnormal bleeding or bruising. BREASTS: Denies any breast lumps, pain or nipple discharge. PHYSICAL EXAM: GENERAL: Well-developed pleasant male in no acute distress. HEENT: No scleral icterus. Extraocular movements grossly intact. Moist buccal mucosa. NECK: Supple without lymphadenopathy. CHEST: Unlabored respirations. Equal bilateral excursions. CARDIOVASCULAR: Regular rate and rhythm. Distal 2+ pulses. ABDOMEN: Soft, nondistended. Tender generalized abdominal pain. MUSCULOSKELETAL: No clubbing, cyanosis, or edema. SKIN: Well perfused. PSYCH: Alert and oriented to self, place and time ASSESSMENT: 1. Diffuse abdominal pain. 2. History of multiple abdominal surgeries. 3. Intra-abdominal adhesions. 4. Recurrent bowel obstructions. PLAN: 1. Robotic lysis of adhesions were described in detail including risk of injury to the intestine, need for further surgery, and open technique. 2. DVT prophylaxis. 3. Antibiotic prophylaxis. 4. He is elevated risk due to pre-existing comorbidities Past Medical History Past Medical History: Atrial Fibrillation, Cancer, GERD/Reflux, Hearing Disorder / Deafness, Hypertension, Prostate Disorder, Syncope Additional Past Medical History / Comment(s): Hx prostate cancer- no chemo no radiation., kindey stone, bowel obstruction, covid. "I used to failnt frequently when I was younger." Hx of concussion- 2022. Rt ear partially destroyed. 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 Hx recent small bowel obstruction. History of Any Multi-Drug Resistant Organisms: None Reported Past Surgical History: Hernia Repair, Prostate Surgery, Tonsillectomy Additional Past Surgical History / Comment(s): Bilat hernia repair Past Anesthesia/Blood Transfusion Reactions: No Reported Reaction Additional Past Anesthesia/Blood Transfusion Reaction / Comment(s): Pt states after Prostate surgery it took him a year to get back to normal with his brain activity. States he had difficulty forming and putting together two sentences. Smoking Status: Never smoker - Past Family History Father Family Medical History: Cancer Additional Family Medical History / Comment(s): Skin cancer Medications and Allergies Home Medications Medication Instructions Recorded Confirmed Type Apixaban [Eliquis] 2.5 mg PO BID 08/17/20 07/10/24 History Flecainide [Tambocor] 50 mg PO Q12HR 02/09/23 07/10/24 History lisinopriL 15 mg PO QAM 02/09/23 07/10/24 History Acetaminophen [Tylenol Arthritis] 1,300 mg PO Q8H PRN 06/03/24 07/10/24 History Butalb/APAP/Caff 50-325-40Mg 1 - 2 tab PO Q4H PRN MDD 6 tab 06/03/24 07/10/24 History [Fioricet 50-325-40] clonazePAM [KlonoPIN] 0.25 - 0.5 mg PO HS PRN 06/03/24 07/10/24 History Prevagen(Unknown Dose) 1 dose PO QAM 07/10/24 07/10/24 History Allergies Allergy/AdvReac Type Severity Reaction Status Date / Time Penicillins Allergy Severe Anaphylaxis Verified 07/10/24 15:03 Sulfa (Sulfonamide Allergy Anaphylaxis Verified 07/10/24 15:03 Antibiotics)
[~2024-07-12 08:02] MED LIST changes: -CLINDAMYCIN 900 MG in DEXTROSE 5% IN WATER 50 ML IVPB ONE; -DEXAMETHASONE SOD PHOSPHATE 10 MG/ML 1 ML VIAL IV ONE; +DEXAMETHASONE SOD PHOSPHATE 10 MG/ML 1 ML VIAL IVP STA; -LEVOFLOXACIN 500MG-D5W PMX 500 MG in DEXTROSE/WATER 1 100ML.BAG IVPB ONE; -LIDOCAINE 1% 20 ML VIAL (10MG/ML) FOR IV START INTRADERMA PRN; -ONDANSETRON 4 MG/2 ML VIAL IVP ONE; +Pre Op ABX Message 1 EACH MISC MISCELLANE ONE; +diphenhydrAMINE 50 MG/ML 1 ML VIAL IVP PRN
[2024-07-12] MEDS: LACTATED RINGERS 1,000 ML IV SCH (08:45)
[2024-07-12] MEDS: IV FLUID CONTINUATION 1,000 ML IV ONE (08:45)
[2024-07-12] MEDS: LIDOCAINE 1% (10MG/ML) FOR IV START INTRADERMA STA (08:45)
[2024-07-12 09:09] LABS: Basophils # (A) 0.05 10*3/uL (0.00-0.10); Basophils % (A) 1.1 %; Eosinophils # (A) 0.08 10*3/uL (0.04-0.35); Eosinophils % (A) 1.8 %; HGB 14.6 g/dL (13.0-17.0); Lymphocytes # (A) 1.52 10*3/uL (0.90-5.00); Lymphocytes % (A) 34.8 %; MCH 32.6 pg (27.0-32.0); MCHC 34.8 g/dL (32.0-37.0); MCV 93.8 fL (80.0-97.0); Mean Platelet Volume 10.5 fL (9.5-12.2); Monocytes # (A) 0.43 10*3/uL (0.20-1.00); Monocytes % (A) 9.8 %; Neutrophils # (A) 2.28 10*3/uL (1.80-7.70); Neutrophils % (A) 52.3 %; Platelet Count 249 10*3/uL (140-440); RBC 4.48 10*6/uL (4.40-5.60); RDW 12.6 % (11.5-14.5); WBC 4.37 10*3/uL (4.50-10.00)
[2024-07-12] MEDS: ACETAMINOPHEN TAB 500 MG TAB PO PRN (09:13)
[2024-07-12] MEDS: MELOXICAM 7.5 MG TAB PO PRN (09:13)
[2024-07-12] MEDS: ONDANSETRON 4 MG/2 ML VIAL IVP PRN (09:16)
[2024-07-12] MEDS: fentaNYL (PF) 50 MCG/ML 2 ML AMP IVP PRN (09:42)
[2024-07-12] MEDS: MIDAZOLAM 2 MG/2 ML VIAL IV PRN (09:42)
[2024-07-12] MEDS: HEPARIN SODIUM,PORCINE 5,000 UNIT/ML 1 ML VIAL SQ PRN (09:49)
--- NOTE | 2024-07-12 09:54 | P.ANPRN ---
Procedure Note - Anesthesia - Nerve Block Performed Bilateral Erector Spinae Single Time Out Performed: Yes Date of Procedure: 07/12/24 Procedure Start Time: 09:42 Procedure Stop Time: 09:47 Location of Patient: PreOp Indication: Acute Post-Operative Pain, Analgesia, Requested by Surgeon Sedation Type: Sedate with meaningful contact maintained Preparation: Sterile Prep Position: Prone Catheter: None Needle Types: Pajunk Needle Gauge: 21 Ultrasound used to visualize needle placement: Yes Ultrasound used to observe medication spread: Yes Injectate: 0.5% Ropivacaine (see comment for volume) ([id number], Needle level T10--- Each side.) Blood Aspirated: No Pain Paresthesia on Injection Noted: No Resistance on Injection: Normal Image Stored and Saved: Yes Events: Uneventful and Well Tolerated
[2024-07-12] MEDS ORDERED: DEXAMETHASONE SOD PHOSPHATE 4 MG/ML 1 ML VIAL ONE (09:55)
[2024-07-12] MEDS ORDERED: SUCCINYLCHOLINE CHLORIDE 200 MG/10 ML VIAL IV ONE (09:55)
[2024-07-12] MEDS ORDERED: ePHEDrine 50 MG/ML 1 ML VIAL ONE (09:55)
[2024-07-12] MEDS ORDERED: GLYCOPYRROLATE 0.2 MG/ML 2 ML VIAL ONE (09:55)
[2024-07-12] MEDS ORDERED: fentaNYL (PF) 50 MCG/ML 2 ML AMP ONE (09:55)
[2024-07-12] MEDS ORDERED: LIDOCAINE 1% INJ 10MG/ML (20 ML MDV) ONE (09:55)
[2024-07-12] MEDS ORDERED: PHENYLEPHRINE 10 MG/ML VIAL ONE (09:55)
[2024-07-12] MEDS ORDERED: ROPIVACAINE 5 MG/ML 30 ML VIAL ONE (09:55)
[2024-07-12] MEDS ORDERED: NEOSTIGMINE 1 MG/ML 10 ML VIAL ONE (09:55)
[2024-07-12] MEDS ORDERED: PROPOFOL 10 MG/ML 20 ML VIAL IV ONE (09:55)
[2024-07-12] MEDS ORDERED: ROCURONIUM 10 MG/ML (5 ML VIAL) IV ONE (09:55)
[2024-07-12] MEDS ORDERED: DEXAMETHASONE SOD PHOSPHATE 10 MG/ML 1 ML VIAL ONE (09:55)
[2024-07-12] MEDS ORDERED: LABETALOL 5 MG/ML VIAL MDV ONE (09:55)
[2024-07-12] MEDS: LACTATED RINGERS 1,000 ML IV ONE (10:35)
[2024-07-12] MEDS: LIDOCAINE 1%-EPI 1:100,000 20 ML VIAL SQ ONE (10:44)
[2024-07-12] MEDS: HYDROmorphone 0.5 MG/0.5 ML SYRINGE IVP PRN (12:54)
[2024-07-12 13:05] VITALS: TEMP 97.2
[2024-07-12] MEDS: HYDROmorphone 0.5 MG/0.5 ML SYRINGE IVP ONE (13:26)
--- NOTE | 2024-07-12 13:26 | P.OP ---
Date of Procedure: 07/12/24 Description of Procedure: SURGEON: LORIE ANNA MD PREOPERATIVE DIAGNOSES: 1. Recurrent small bowel obstruction 2. History of multiple abdominal surgeries 3. Atrial fibrillation 4. Chronic anticoagulant use 5. History of prostate cancer 6. Urinary retention, present on admission POSTOPERATIVE DIAGNOSES: 1. Recurrent small bowel obstruction 2. History of multiple abdominal surgeries 3. Atrial fibrillation 4. Chronic anticoagulant use 5. Severe pelvic adhesions OPERATION: 1. Robotic-assisted da Xi Xi laparoscopic with lysis of adhesions over 1.5 hours ESTIMATED BLOOD LOSS: 20 mL. SPECIMENS REMOVED: None. COMPLICATIONS: None. OPERATIVE FINDINGS: 1. No recurrent bilateral inguinal hernias 2. Severe pelvic adhesions with large bowel obstruction and small bowel obstruction, right and left pelvis 3. Sigmoid colon adherent to right pelvis due to severe adhesions 4. Ileum adherent to left pelvis/sigmoid colon due to adhesions 5. Highly redundant sigmoid colon 6. Extensive lysis of adhesions with complete reduction of small bowel and sigmoid colon obstructions INDICATIONS: The patient is a 79-year-old male who presents with pre-existing history of recurrent bowel obstructions. He has pre-existing history of inguinal hernia repairs done via laparoscopic technique. Surgical intervention with diagnostic laparoscopy, lysis of adhesions were described. Informed consent was obtained. Robotic assisted laparoscopic approach was described. Benefits and risks of the procedure including but not limited to bleeding, infection was described. Informed consent was obtained. DESCRIPTION OF PROCEDURE: Patient was brought to the operating room, placed in supine position. After general induction, the abdomen had been prepped and draped in standard sterile fashion. The robotic da Xi XI system was primed. After a timeout protocol was performed, the patient had been prepped and draped in standard sterile fashion. The robot was docked along the left lateral abdomen. Please note prior to docking of the robot; however, a 5 mm 0 degrees laparoscopic trocar entry was performed along the left upper quadrant. Next, 4-8 mm robotic ports were placed along the upper abdomen. Trochars were placed at least 10 to 15 cm away from the target anatomy. Instruments including graspers and scissors with cautery were interchanged by the commercial escrow assistant. I had sat at the console. Endoscopic imaging were obtained. Moderate pelvic adhesions along the right groin including small bowel and sigmoid colon to the right pelvis was found. Moderate interloop adhesions involving the sigmoid colon and ileum were found causing obstruction. Blunt dissection including sharp dissection using scissors and Bovie cautery was used releasing adhesions from the right groin and right pelvis. Multiple interloop adhesions involving the small bowel and sigmoid colon were also identified where the small bowel was adherent to the colon. Adhesions and interloop were taken down using combination of scissors as well as vessel sealer. No recurrent inguinal hernia along the bilateral groins. Hemostasis was checked. The sigmoid colon was highly redundant for risk of sigmoid volvulus. The sigmoid colon was viable. The small bowel was investigated from the terminal ileum to the ligament of Treitz as all adhesions were addressed. Adhesive band of the left pelvis and sigmoid colon were identified involving the small bowel which was lysed. The adhesive band causing obstruction was released. Hemostasis was checked. The robot was undocked. All pneumoperitoneum and instruments were evacuated from the abdominal cavity. The incisions were reapproximated using 4-0 Monocryl in an interrupted subcuticular fashion. Please note along the trocar sites, local anesthetic was placed as a field block prior to insertion of all instruments. Dermabond was applied to the skin. At the end of the procedure needle, sponge, and instrument count had been verified correct by the surgical endoscopist. The patient was transferred to postanesthesia care unit in stable condition. Plan - Discharge Summary Discharge Rx Participant: No New Discharge Prescriptions: New Tamsulosin [Flomax] 0.4 mg PO DAILY #7 cap Simethicone [Gas-X] 125 mg PO AC-TID PRN #20 capsule PRN Reason: Pain Continue lisinopriL 15 mg PO QAM Flecainide [Tambocor] 50 mg PO Q12HR clonazePAM [KlonoPIN] 0.25 - 0.5 mg PO HS PRN PRN Reason: Anxiety Butalb/APAP/Caff 50-325-40Mg [Fioricet 50-325-40] 1 - 2 tab PO Q4H PRN MDD 6 tab PRN Reason: Migraine Headache Acetaminophen [Tylenol Arthritis] 1,300 mg PO Q8H PRN PRN Reason: Pain Apixaban [Eliquis] 2.5 mg PO BID Prevagen(Unknown Dose) 1 dose PO QAM Discharge Medication List Apixaban [Eliquis] 2.5 mg PO BID 08/17/20 [History] Flecainide [Tambocor] 50 mg PO Q12HR 02/09/23 [History] lisinopriL 15 mg PO QAM 02/09/23 [History] Acetaminophen [Tylenol Arthritis] 1,300 mg PO Q8H PRN 06/03/24 [History] Butalb/APAP/Caff 50-325-40Mg [Fioricet 50-325-40] 1 - 2 tab PO Q4H PRN MDD 6 tab 06/03/24 [History] clonazePAM [KlonoPIN] 0.25 - 0.5 mg PO HS PRN 06/03/24 [History] Prevagen(Unknown Dose) 1 dose PO QAM 07/10/24 [History] Simethicone [Gas-X] 125 mg PO AC-TID PRN #20 capsule 07/12/24 [Rx] Tamsulosin [Flomax] 0.4 mg PO DAILY #7 cap 07/12/24 [Rx] Follow up Appointment(s)/Referral(s): Lorei Anna MD [STAFF PHYSICIAN] - 07/16/24 6:20 pm (Telehealth) Patient Instructions/Handouts: *Surgery [facility] - (Anesthesia) Discharge Instructions Outpatient Surgery, Urinary Retention in Men (GEN), Lysis of Abdominal Adhesions (DC) Activity/Diet/Wound Care/Special Instructions: BLOOD THINNERS RESUME 07/15/24 TELEHEALTH - DR WILL CALL YOU BETWEEN 9 am to 8 pm NO LONG DRIVES OR AIRPLANE RIDES OVER 60 MINUTES FOR THE NEXT 2 WEEKS, 07/26/24, DUE TO HIGH RISK OF PULMONARY EMBOLISM/DVTs May drive in 48 hours after recovery from anesthesia No lifting over 10 pounds in 2 weeks until 07/26/24, May shower. No bath tub soaks for two weeks until 07/26/24, Diet as tolerated. Use Tylenol, simethicone scheduled for the next 24-48 hours for best pain relief. Use ice along incisions for today to prevent swelling. Discharge Disposition: HOME SELF-CARE
[2024-07-12] MEDS: TAMSULOSIN 0.4 MG CAP.ER.24H PO STA (13:40)
[2024-07-12 13:47] VITALS: RESP 16
[2024-07-12] MEDS: FAMOTIDINE 20 MG/2 ML VIAL IV STA (14:33)
[2024-07-12] MEDS: diphenhydrAMINE 50 MG/ML 1 ML VIAL IVP PRN (14:34)
[2024-07-12 15:18] VITALS: BP 147/82; PULSE 82
== END 2024-07-12 15:30 | disposition home or self-care (01) ==
LOC: OR 08:02
PROVIDERS: ATTEND Surgery Plastic and Reconstructive Surgery
DX: K66.0 Peritoneal adhesions (postprocedural) (postinfection) (principal); K56.609 Unspecified intestinal obstruction, unspecified as to partial versus complete obstruction; K21.9 Gastro-esophageal reflux disease without esophagitis; I48.91 Unspecified atrial fibrillation; I10 Essential (primary) hypertension; F41.9 Anxiety disorder, unspecified; N40.0 Benign prostatic hyperplasia without lower urinary tract symptoms; R33.9 Retention of urine, unspecified; H91.90 Unspecified hearing loss, unspecified ear; M19.90 Unspecified osteoarthritis, unspecified site; Z85.46 Personal history of malignant neoplasm of prostate; Z90.89 Acquired absence of other organs; Z86.16 Personal history of COVID-19; Z98.890 Other specified postprocedural states; Z88.0 Allergy status to penicillin; Z88.2 Allergy status to sulfonamides; Z88.1 Allergy status to other antibiotic agents; Z79.01 Long term (current) use of anticoagulants; Z79.899 Other long term (current) drug therapy
CPT/HCPCS: 44180; 64468; 85025; J2250; J0330; J1200; J1644; J1100 ×2; J2710; J0690; J2405; J2003; J3010; J3490; J2795; J2704; J1171; J2371; J1920; J1596